=== PATIENT | male | born 1940 | race Hispanic/Latino ===

== ENCOUNTER 2018-03-06 12:24 | Day surgery (SDC) | payer MEDICARE, OTHER ==
[2018-02-16 13:31] VITALS: BMI 25.0
[2018-03-06 13:03] LABS: BASO # 0.02 K/mm3 (0.0-2.0); BASO % 0.3 % (0.0-3.0); EOS # 0.1 (0.0-0.7); GRAN # 5.74 (1.4-6.5); GRAN % 73.5 % (50.0-68.0); HEMOGLOBIN 15.7 g/dL (14.0-18.0); LYMPH # 1.2 (1.2-3.4); MEAN CORPUSCULAR HEMOGLOBIN 33.4 pg (25.0-35.0); MEAN CORPUSCULAR HGB CONC 35.9 g/dl (31.0-37.0); MEAN PLATELET VOLUME 9.7 fl (7.0-11.0); MONO # 0.8 (0.1-0.6); MONO % 10.2 % (1.0-6.0); RBC 4.7 10^6/uL (3.5-6.1); RED CELL DISTRIBUTION WIDTH 13.4 % (11.5-14.5); WHITE BLOOD COUNT 7.8 10^3/ul (4.5-11.0)
[2018-03-06 13:11] LABS: BLOOD UREA NITROGEN 19 mg/dL (7-21); CALCIUM 9.6 mg/dL (8.4-10.5); GFR NON-AFRICAN AMERICAN > 60
[2018-03-06 13:13] LABS: INR 1.07; PROTHROMBIN TIME 12.2 SECONDS (9.4-12.5)
[2018-03-06] MEDS ORDERED: Midazolam 2 MG/2 ML VIAL ONE (16:29)
[2018-03-06] MEDS ORDERED: Lidocaine 1% Inj (20ml) ONE (16:30)
[2018-03-06] MEDS ORDERED: Oxycodone/Acetaminophen 5/325 mg Tab PO PRN (17:09)
[2018-03-06] MEDS ORDERED: Sodium Chloride 0.45% 1,000 ML IV SCH (17:15)
[2018-03-06] MEDS ORDERED: Midazolam 2 MG/2 ML VIAL IVP ONE (17:32)
[2018-03-06 17:35] VITALS: RESP 12; TEMP 97.5
[2018-03-06 17:39] VITALS: O2SAT 95
[2018-03-06 17:52] VITALS: BP 127/71; PULSE 51
--- NOTE | 2018-03-06 18:30 | CT ---
PROCEDURE: CT guided left lower lobe lung biopsy. HISTORY: Previous smoker. 3.5 cm left lower lobe lung mass. Evaluate for malignancy. PHYSICIAN(S): Kaz Alcocer MD. TECHNIQUE: The relative risks and indications of the procedure were explained to the patient and consent obtained. The patient was placed prone on the CT scanner and preliminary images through the lower lungs obtained. Conscious sedation and monitoring were provided throughout the procedure by a nurse. There is a 3.5 cm noncalcified left lower lobe lung mass.. A left posterior oblique approach was selected and the area prepped and draped in the usual sterile fashion. 1% Xylocaine was used to anesthetize the skin and soft tissues. A 19 gauge guiding needle was advanced into the 3.5 cm left lower lobe lung mass. Its position was confirmed with CT. Using coaxial technique, multiple core biopsies were obtained. The postprocedure images show no evidence of large pneumothorax or significant hemorrhage.. IMPRESSION: 1. CT-guided left lower lobe lung biopsy as described above.
--- NOTE | 2018-03-07 10:49 | RAD ---
Date of service: 03/06/2018 HISTORY: lt lung bx COMPARISON: No prior. FINDINGS: LUNGS: Density at left lung base PLEURA: No significant pleural effusion identified, no pneumothorax apparent. CARDIOVASCULAR: Normal. OSSEOUS STRUCTURES: No significant abnormalities. VISUALIZED UPPER ABDOMEN: Normal. OTHER FINDINGS: None. IMPRESSION: No evidence of post biopsy pneumothorax
== END 2018-03-06 19:30 | disposition home or self-care (01) ==
LOC: SDS 12:24
PROVIDERS: ATTEND Radiology Vascular & Interventional Radiology
DX: C34.32 Malignant neoplasm of lower lobe, left bronchus or lung (principal); I25.10 Atherosclerotic heart disease of native coronary artery without angina pectoris; Z87.891 Personal history of nicotine dependence
CPT/HCPCS: 32405; 36415; 71045; 77012; 80048; 85025; 85610; 85730; 88305; J2250; J2405; J3010; J7030

== ENCOUNTER 2018-06-08 10:03 | Day surgery (SDC) | payer MEDICARE, OTHER ==
[2018-06-05 12:06] VITALS: BMI 25.8
[2018-06-08 10:41] LABS: BASO # 0.03 K/mm3 (0.0-2.0); BASO % 0.4 % (0.0-3.0); EOS # 0.6 (0.0-0.7); EOS % 6.5 % (1.5-5.0); GRAN # 5.94 (1.4-6.5); GRAN % 70.2 % (50.0-68.0); HEMOGLOBIN 13.8 g/dL (14.0-18.0); LYMPH # 1.2 (1.2-3.4); LYMPH % 14.1 % (22.0-35.0); MEAN CELL VOLUME 91.4 fl (80.0-105.0); MEAN CORPUSCULAR HEMOGLOBIN 31.1 pg (25.0-35.0); MEAN PLATELET VOLUME 9.2 fl (7.0-11.0); MONO # 0.7 (0.1-0.6); MONO % 8.8 % (1.0-6.0); RBC 4.44 10^6/uL (3.5-6.1); RED CELL DISTRIBUTION WIDTH 13.4 % (11.5-14.5); WHITE BLOOD COUNT 8.5 10^3/uL (4.5-11.0)
[2018-06-08 10:49] LABS: INR 1.2; PARTIAL THROMBOPLASTIN TIME 30.9 Seconds (25.1-36.5); PROTHROMBIN TIME 13.8 SECONDS (9.4-12.5)
[2018-06-08 10:51] LABS: BLOOD UREA NITROGEN 13 mg/dL (7-21); CALCIUM 9.2 mg/dL (8.4-10.5); GFR NON-AFRICAN AMERICAN > 60
[2018-06-08] MEDS ORDERED: Lidocaine 2% Inj (20ml) ONE (12:17)
[2018-06-08] MEDS ORDERED: Midazolam 2 MG/2 ML VIAL ONE ×2 (12:28→12:43)
[2018-06-08] MEDS ORDERED: Oxycodone/Acetaminophen 5/325 mg Tab PO PRN (13:34)
[2018-06-08] MEDS ORDERED: Sodium Chloride 0.45% 1,000 ML IV SCH (13:45)
[2018-06-08 14:43] VITALS: BP 147/73; PULSE 66; RESP 20; TEMP 97; O2SAT 97
--- NOTE | 2018-06-08 15:35 | VASCULAR ---
PROCEDURE: Ultrasound and fluoroscopic right internal jugular venous access port. CLINICAL HISTORY: Lung carcinoma.Venous port for chemotherapy. PHYSICIAN(S): Kaz Alcocer M.D. TECHNIQUE: The relative risks and indications of the procedure were explained to the patient and consent obtained. The patient was placed supine on the arteriogram table and the right neck and chest prepped and draped in the usual sterile fashion. Conscious sedation monitoring was provided throughout the procedure by a nurse. Antibiotics were given prior to the procedure. Under direct ultrasound guidance, the right internal jugular vein was punctured with a micro-puncture set. A 0.035 angled Glidewire was advanced into the IVC. A 4 cm incision was made below the right clavicle and the pocket blunted dissected. A 8 Chinese single-lumen catheter, 24 cm long, was advanced to the SVC/RA junction. The catheter was trimmed and attached to the port. The port aspirates and injects easily. The port was placed in the pocket and closed in 2 layers. The patient tolerated the procedure well. IMPRESSION: Ultrasound and fluoroscopically placed right internal jugular venous access port.
== END 2018-06-08 15:51 | disposition home or self-care (01) ==
LOC: SDS 10:03
PROVIDERS: ATTEND Radiology Vascular & Interventional Radiology
DX: C34.90 Malignant neoplasm of unspecified part of unspecified bronchus or lung (principal)
CPT/HCPCS: 36415; 36561; 76937; 77001; 80048; 85025; 85610; 85730; C1769; C1788; J0690; J1644; J2250; J2405; J3010; J7030

== ENCOUNTER 2018-07-03 12:25 | Outpatient (CLI) | payer MEDICARE, OTHER | END 2018-07-03 12:26 | disposition home or self-care (01) | LOC: OPLAB 12:25 ==

== ENCOUNTER 2018-07-04 11:49 | Outpatient (CLI) | payer MEDICARE, OTHER | END 2018-07-04 11:50 | disposition home or self-care (01) | LOC: OPLAB 11:49 | DX: D64.9 Anemia, unspecified (principal); E78.5 Hyperlipidemia, unspecified; E83.40 Disorders of magnesium metabolism, unspecified; M81.0 Age-related osteoporosis without current pathological fracture ==

== ENCOUNTER 2018-07-09 13:41 | Outpatient (CLI) | payer MEDICARE, OTHER | END 2018-07-09 13:42 | disposition home or self-care (01) | LOC: OPLAB 13:41 ==

== ENCOUNTER 2018-07-24 12:58 | Outpatient (CLI) | payer MEDICARE, OTHER | END 2018-07-24 12:59 | disposition home or self-care (01) | LOC: OPLAB 12:58 ==

== ENCOUNTER 2018-07-25 12:11 | Outpatient (CLI) | payer MEDICARE, OTHER | END 2018-07-25 12:12 | disposition home or self-care (01) | LOC: OPLAB 12:11 | DX: D64.9 Anemia, unspecified (principal); E78.5 Hyperlipidemia, unspecified; E83.40 Disorders of magnesium metabolism, unspecified; M81.0 Age-related osteoporosis without current pathological fracture ==

== ENCOUNTER 2018-07-26 10:59 | Inpatient (IN) | payer MEDICARE, OTHER ==
[2018-07-26 11:03] VITALS: BMI 23.7
[2018-07-26] MEDS ORDERED: Albuterol-Ipratrop 3 mg / 0.5 (3 ml) UD ONE ×2 (11:13→11:18)
--- NOTE | 2018-07-26 11:37 | ED PDOC ---
Arrival/HPI - General Time Seen by Provider: 07/26/18 11:04 Historian: Patient - History of Present Illness Narrative History of Present Illness (Text): 07/26/18 11:10 Patient is a 77 year old male with a past medical history of HLD and lung CA (last chemo and last iron transfusion 2 days ago), who presents to the Emergency department with complaints of worsening shortness of breath since 2 days. Reports shortness of breath worsened after iron transfusion yesterday. Patient informs visiting Dr. Palafox this morning where he was given solumedrol in the office and was referred to the Emergency department for worsening shortness breath. Patient denies any chest pain or fever. HPI and ROS limited secondary to respiratory distress. Oncologist: Dr. Palafox 07/26/18 13:51 Time/Duration: < week Symptom Onset: Gradual Symptom Course: Worsening Activities at Onset: Light Context: Other (Referred by Dr. Palafox ) Past Medical History - Provider Review Nursing Documentation Reviewed: Yes - Cardiac Hx Pacemaker: No - Neurological Hx Paralysis: No - Hematological/Oncological Hx Blood Transfusions: No - Musculoskeletal/Rheumatological Hx Musculoskeletal Disorders: Yes - Psychiatric Hx Emotional Abuse: No Hx Physical Abuse: No Hx Substance Use: No - Anesthesia Hx Anesthesia Reactions: No Hx Malignant Hyperthermia: No - Suicidal Assessment Feels Threatened In Home Enviroment: No Family/Social History - Physician Review Nursing Documentation Reviewed: Yes Family/Social History: No Known Family HX Hx Alcohol Use: Yes (OCCASIONAL BEER) Hx Substance Use: No Allergies/Home Meds Allergies/Adverse Reactions: Allergies No Known Allergies Allergy (Verified 07/26/18 12:11) Home Medications: Home Meds Medication Instructions Recorded Confirmed Aspirin [Ecotrin] 81 mg PO DAILY 11/13/17 07/26/18 Carvedilol [Coreg] 25 mg PO BID 11/13/17 07/26/18 Clopidogrel [Plavix] 75 mg PO DAILY 11/13/17 07/26/18 Multivitamin [Multivitamins] 1 cap PO DAILY 02/16/18 07/26/18 Telmisartan 80 mg PO QPM 02/16/18 07/26/18 Review of Systems - Review of Systems Systems not reviewed;Unavailable: Respiratory Distress Constitutional: absent: Fevers Respiratory: SOB Cardiovascular: absent: Chest Pain Physical Exam Vital Signs Reviewed: Yes Blood Pressure: Hypertensive Pulse: Regular Respiratory Rate: Normal Appearance: Positive for: Uncomfortable Pain Distress: None Mental Status: Positive for: Alert and Oriented X 3 - Systems Exam Head: Present: Atraumatic, Normocephalic Pupils: Present: PERRL Extroacular Muscles: Present: EOMI Conjunctiva: Present: Normal Mouth: Present: Moist Mucous Membranes Neck: Present: Normal Range of Motion Respiratory/Chest: Present: Rales, Retracting, Tachypneic, Other (Right Mediport right chest wall) Cardiovascular: Present: Murmurs, Irregular Rhythm, Tachycardic Abdomen: No: Tenderness, Distention, Peritoneal Signs Upper Extremity: Present: Normal Inspection. No: Cyanosis, Edema Lower Extremity: Present: Edema (pitting edema bilaterally) Neurological: Present: GCS=15, CN II-XII Intact, Speech Normal Skin: Present: Warm, Dry, Normal Color. No: Rashes Psychiatric: Present: Alert, Oriented x 3, Normal Insight, Normal Concentration Medical Decision Making ED Course and Treatment: 07/26/18 11:10 Impression: Patient is a 77 year old male who arrived at the Emergency department with complaints of worsening shortness of breath. Plan: -- ABG -- Labs -- EKG -- Chest X-Ray -- Furosemide -- BIPAP Procedure -- Reassess and disposition Prior Visits: Notes and results from previous visits were reviewed. Progress Notes: 07/26/18 11:47 Patient's lactate elevated to 3.7; however patient's SIRS criteria is only tachycardia. 07/26/18 12:47 Initial ekg at 11:28am appeared irregular. Repeat at 11:50 shows irregular rhythm at 94bpm with no clear p waves. ?afib 07/26/18 13:38 CT Chest reviewed by radiologist, shows: FINDINGS: PULMONARY ARTERIES: Unremarkable. No pulmonary embolism. AORTA: The ascending thoracic aorta is dilated to 4.3 cm once again assuming normal caliber 3.0 cm at the anterior arch. Reticular markings are diffusely increased throughout which may indicate CHF. The main pulmonary artery is dilated to 3.5 cm. Consider pulmonary artery hypertension. Calcific atherosclerotic changes are seen related to the thoracic aorta. LUNGS: Multiple scattered sub cm pulmonary nodules identified at the bilateral upper lobes predominantly but also affect the right middle lobe and right lower lobe suspicious for pulmonary metastases. The left lower lobe main bronchus appears attenuated likely partially resected with remaining airways clear. Reticular markings are diffusely increased throughout, but particularly at the inferior subsegments left upper lobe, which may indicate CHF. Pulmonary vascular congestion is questioned. Medial basilar left upper lobe atelectasis is appreciated with underlying nodule not excluded. PLEURAL SPACES: Interval moderate right pleural effusion present with a loculated [id number] left pleural effusion evident. Mild pericardial thickening or effusion identified. Pleural thickening is seen diffusely throughout the left lung with volume loss noted at the left lung as well status post prior left lower lobectomy. HEART: Cardiomegaly is reiterated with normal volume of the right lateral ventricle re lative to the left. Left atrium appears dilated and left lateral ventricle hypertrophied. LYMPH NODES: No lymphadenopathy. BONES, CHEST WALL: Sclerotic density under 1 cm size seen at the T9 vertebral body posteriorly, suspicious for metastasis though not definite. OTHER FINDINGS: Limited images through the upper abdomen reveals reflux sided contrast material not only into the inferior vena cava but also the hepatic veins diffusely in a pattern that may reflect right heart failure. IMPRESSION: Bilateral moderate pleural effusions are identified in the interval likely pulmonary vascular congestion and potential right heart failure as discussed above. Cardiomegaly. Trace pericardial effusion no definite pulmonary embolus identified. Status post left lower lobectomy with tiny scattered nodules diffusely noted suspicious for metastasis. Potential T9 vertebral body metastasis as well, though sclerotic. Limited atelectasis at the dependent portion of the inferior left lower lobe subsegments may harbor nodularity, further suspicious for metastasis. Thickening of the left-sided pleural may be a function post radiation change or possible inflammatory or infectious process. The latter is not favored. Other lesser findings as discussed above. 07/26/18 15:[address] Short. Normal WBC with 1% bands and afebrile. Considered infection but CT chest negative for infiltrate and blood cultures sent. Some improvement on bipap after lasix 80mg 07/26/18 17:13 - RAD Interpretation Radiology Orders: 07/26/18 11:11 CHEST PORTABLE [RAD] Stat - Medication Orders Current Medication Orders: Discontinued Medications Furosemide (Lasix) 80 mg IVP STAT STA Stop: 07/26/18 11:27 - Scribe Statement The provider has reviewed the documentation as recorded by the [employer] [employer] training with [employer]. All medical record entries made by the Scribe were at my direction and personally dictated by me. I have reviewed the chart and agree that the record accurately reflects my personal performance of the history, physical exam, m edical decision making, and the department course for this patient. I have also personally directed, reviewed, and agree with the discharge instructions and disposition. Disposition/Present on Arrival - Present on Arrival Any Indicators Present on Arrival: No - Disposition Have Diagnosis and Disposition been Completed?: Yes Diagnosis: CHF (congestive heart failure), Irregular cardiac rhythm, Shortness of breath, Metastatic primary lung cancer Disposition: HOSPITALIZED Disposition Time: 13:39 Patient Plan: Admission Patient Problems: Current Active Problems Problem Status Onset CHF (congestive heart failure) Acute Irregular cardiac rhythm Acute Shortness of breath Acute Metastatic primary lung cancer Acute Condition: GOOD
[2018-07-26 11:38] LABS: ARTERIAL BLOOD GAS HCO3 20.7 mmol/L (21-28); ARTERIAL BLOOD GAS O2 SAT 99.6 % (95-98); ARTERIAL BLOOD GAS PCO2 45 mm/Hg (35-45); ARTERIAL BLOOD GAS PH 7.27 (7.35-7.45); ARTERIAL BLOOD GAS TCO2 22.1 mmol.L (22-28)
[2018-07-26 11:44] LABS: HEMOGLOBIN 12.7 g/dL (14.0-18.0); LYMPH # 0.2 (1.2-3.4); LYMPH % 3.4 % (22.0-35.0); MEAN CELL VOLUME 95.4 fl (80.0-105.0); MEAN CORPUSCULAR HEMOGLOBIN 30.8 pg (25.0-35.0); MEAN CORPUSCULAR HGB CONC 32.2 g/dl (31.0-37.0); MEAN PLATELET VOLUME 8.6 fl (7.0-11.0); MONO # 1.1 (0.1-0.6); MONO % 16.6 % (1.0-6.0); PLATELET COUNT 495 10^3/uL (120.0-450.0); RBC 4.13 10^6/uL (3.5-6.1); RED CELL DISTRIBUTION WIDTH 18.3 % (11.5-14.5); WHITE BLOOD COUNT 6.8 10^3/uL (4.5-11.0)
[2018-07-26 11:54] LABS: INR 1.19; PARTIAL THROMBOPLASTIN TIME 31.6 Seconds (26.9-38.3); PROTHROMBIN TIME 13.4 SECONDS (9.4-12.5)
[2018-07-26 12:01] LABS: B-TYPE NATRIURETIC PEPTIDE 4660 pg/mL (0-450); TROPONIN I 0.03 ng/mL
[2018-07-26 12:11] LABS: ALB/GLOB RATIO 1.4 (1.1-1.8); ALT/SGPT 70 U/L (7-56); AST/SGOT 62 U/L (17-59); BLOOD UREA NITROGEN 31 mg/dL (7-21); CALCIUM 9.3 mg/dL (8.4-10.5); GFR NON-AFRICAN AMERICAN > 60
[2018-07-26 12:30] LABS: IRON 235 ug/dL (45-180)
[2018-07-26 12:31] LABS: ATYPICAL LYMPHOCYTE 4 % (0.0-0.0); BAND 1 % (0-2); LYMPHOCYTE 7 % (22.0-35.0); MONOCYTE 5 % (1.0-6.0); NEUTROPHIL 83 % (50.0-70.0)
[2018-07-26 12:32] LABS: URIC ACID 6.4 mg/dL (3.5-8.5)
[2018-07-26] MEDS ORDERED: Iohexol 350 MG/100 ML VIAL ONE (12:32)
[2018-07-26 12:39] LABS: % IRON SATURATION 103 % (20-55); TOTAL IRON BINDING CAPACITY 229 ug/dL (261-462)
--- NOTE | 2018-07-26 13:40 | CT ---
Date of service: 07/26/2018 PROCEDURE: CT Chest with contrast (Pulmonary Angiogram) HISTORY: lung cancer, shortness of breath, tachypnea COMPARISON: Non enhanced chest CT 02/05/2018. TECHNIQUE: Axial computed tomography images were obtained of the chest in the pulmonary arterial phase of enhancement. Coronal and sagittal reformatted images were created and reviewed. Intravenous contrast dose: Omnipaque 350, 96 cc Radiation dose: Total exam DLP = 556.67 mGy-cm. This CT exam was performed using one or more of the following dose reduction techniques: Automated exposure control, adjustment of the mA and/or kV according to patient size, and/or use of iterative reconstruction technique. FINDINGS: PULMONARY ARTERIES: Unremarkable. No pulmonary embolism. AORTA: The ascending thoracic aorta is dilated to 4.3 cm once again assuming normal caliber 3.0 cm at the anterior arch. Reticular markings are diffusely increased throughout which may indicate CHF. The main pulmonary artery is dilated to 3.5 cm. Consider pulmonary artery hypertension. Calcific atherosclerotic changes are seen related to the thoracic aorta. LUNGS: Multiple scattered sub cm pulmonary nodules identified at the bilateral upper lobes predominantly but also affect the right middle lobe and right lower lobe suspicious for pulmonary metastases. The left lower lobe main bronchus appears attenuated likely partially resected with remaining airways clear. Reticular markings are diffusely increased throughout, but particularly at the inferior subsegments left upper lobe, which may indicate CHF. Pulmonary vascular congestion is questioned. Medial basilar left upper lobe atelectasis is appreciated with underlying nodule not excluded. PLEURAL SPACES: Interval moderate right pleural effusion present with a loculated [id number] left pleural effusion evident. Mild pericardial thickening or effusion identified. Pleural thickening is seen diffusely throughout the left lung with volume loss noted at the left lung as well status post prior left lower lobectomy. HEART: Cardiomegaly is reiterated with normal volume of the right lateral ventricle relative to the left. Left atrium appears dilated and left lateral ventricle hypertrophied. LYMPH NODES: No lymphadenopathy. BONES, CHEST WALL: Sclerotic density under 1 cm size seen at the T9 vertebral body posteriorly, suspicious for metastasis though not definite. OTHER FINDINGS: Limited images through the upper abdomen reveals reflux sided contrast material not only into the inferior vena cava but also the hepatic veins diffusely in a pattern that may reflect right heart failure. IMPRESSION: Bilateral moderate pleural effusions are identified in the interval likely pulmonary vascular congestion and potential right heart failure as discussed above. Cardiomegaly. Trace pericardial effusion no definite pulmonary embolus identified. Status post left lower lobectomy with tiny scattered nodules diffusely noted suspicious for metastasis. Potential T9 vertebral body metastasis as well, though sclerotic. Limited atelectasis at the dependent portion of the inferior left lower lobe subsegments may harbor nodularity, further suspicious for metastasis. Thickening of the left-sided pleural may be a function post radiation change or possible inflammatory or infectious process. The latter is not favored. Other lesser findings as discussed above.
--- NOTE | 2018-07-26 14:52 | CP.PCM.CON ---
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 Patient was at Dr Dykes's office receiving iron infusion when he became extremely short of breath. He stated his shortness of breath began about 7 days ago and slowly worsened to the point he was becoming short of breath at rest. He denies fevers, chills, chest pain. He is status-post resection of his lung mass in 04/2018. He has received 3 cycles of chemotherapy with carboplatin which beg an after the resection. 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 PMD: Deja Oncologist: Jania [employer] Executive Producer: Alice ([facility]) Review of Systems - Review of Systems All systems: reviewed and no additional remarkable complaints except (as stated in HPI) Past Patient History - Past Social History Smoking Status: Former Smoker - CARDIAC Hx Pacemaker: No - PULMONARY Hx Respiratory Disorders: Yes Hx Lung Cancer: Yes - NEUROLOGICAL Hx Paralysis: No - HEMATOLOGICAL/ONCOLOGICAL Hx Blood Transfusions: No - MUSCULOSKELETAL/RHEUMATOLOGICAL Hx Musculoskeletal Disorders: Yes - PSYCHIATRIC Hx Emotional Abuse: No Hx Physical Abuse: No Hx Substance Use: No - SURGICAL HISTORY Hx Surgeries: Yes (CARD CATH) Hx Coronary Stent: Yes (x2) Other/Comment: lobectomy - ANESTHESIA Hx Anesthesia Reactions: No Hx Malignant Hyperthermia: No Meds Allergies/Adverse Reactions: Allergies Allergy/AdvReac Type Severity Reaction Status Date / Time No Known Allergies Allergy Verified 07/26/18 12:11 Physical Exam - Constitutional Appears: Well, Non-toxic, No Acute Distress - Head Exam Head Exam: ATRAUMATIC, NORMAL INSPECTION, NORMOCEPHALIC - Eye Exam Eye Exam: EOMI, Normal appearance, PERRL. absent: Scleral icterus - ENT Exam ENT Exam: Mucous Membranes Moist - Neck Exam Neck exam: Positive for: Full Rom - Respiratory Exam Respiratory Exam: Clear to Auscultation Bilateral, NORMAL BREATHING PATTERN. absent: Rales, Rhonchi, Wheezes Additional comments: seen on bipap fio2 30% - Cardiovascular Exam Cardiovascular Exam: Tachycardia, Irregular Rhythm, +S1, Systolic Murmur - GI/Abdominal Exam GI & Abdominal Exam: Normal Bowel Sounds, Soft. absent: Tenderness - Extremities Exam Extremities exam: Positive for: normal capillary refill, pedal edema, pedal pulses present Additional comments: 1+ pedal edema b/l - Neurological Exam Neurological exam: Alert, Oriented x3 - Psychiatric Exam Psychiatric exam: Normal Affect, Normal Mood - Skin Skin Exam: Dry, Intact, Normal Color, Warm Results - Vital Signs Recent Vital Signs: Last Vital Signs Temp 97.3 F L 07/26/18 12:13 Pulse 84 07/26/18 13:15 Resp 18 07/26/18 13:15 BP 133/97 H 07/26/18 13:15 Pulse Ox 98 07/26/18 13:15 - Labs Result Diagrams: 07/26/18 11:20 07/26/18 11:20 Labs: Laboratory Results - last 24 hr 07/26/18 07/26/18 07/26/18 10:30 10:30 11:20 WBC 6.8 RBC 4.13 Hgb 12.7 L Hct 39.4 L MCV 95.4 D MCH 30.8 MCHC 32.2 RDW 18.3 H Plt Count 495 H MPV 8.6 Neut % (Auto) 80.0 H Lymph % (Auto) 3.4 L [place] % (Auto) 16.6 H Eos % (Auto) 0.0 L Baso % (Auto) 0.0 Lymph # (Auto) 0.2 L [place] # (Auto) 1.1 H Eos # (Auto) 0.0 Baso # (Auto) 0.00 Absolute Neuts (auto) 5.44 Neutrophils % (Manual) 83 H Band Neutrophils % 1 Lymphocytes % (Manual) 7 L Atypical Lymphs % 4 H Monocytes % (Manual) 5 PT INR APTT D-Dimer, Quantitative pCO2 pO2 HCO3 ABG pH ABG Total CO2 ABG O2 Saturation ABG Base Excess ABG Potassium Glucose Lactate Mechanical Rate FiO2 Inspiratory BiPAP Crit Value Called To Crit Value Called By Blood Gas Notified Time Sodium Potassium Chloride Carbon Dioxide Anion Gap BUN Creatinine Est GFR ( Amer) Est GFR (Non-Af Amer) Random Glucose Uric Acid 6.4 Calcium Phosphorus Magnesium 2.0 Iron 235 H TIBC 229 L % Saturation 103 H Total Bilirubin AST ALT Alkaline Phosphatase Lactate Dehydrogenase 587 Total Creatine Kinase Troponin I NT-Pro-B Natriuret Pep Total Protein Albumin Globulin Albumin/Globulin Ratio Arterial Blood Potassium 07/26/18 07/26/18 07/26/18 11:20 11:20 11:25 WBC RBC Hgb Hct MCV MCH MCHC RDW Plt Count MPV Neut % (Auto) Lymph % (Auto) [place] % (Auto) Eos % (Auto) Baso % (Auto) Lymph # (Auto) [place] # (Auto) Eos # (Auto) Baso # (Auto) Absolute Neuts (auto) Neutrophils % (Manual) Band Neutrophils % Lymphocytes % (Manual) Atypical Lymphs % Monocytes % (Manual) PT 13.4 H INR 1.19 APTT 31.6 D-Dimer, Quantitative 638 H pCO2 45 pO2 160.0 H HCO3 20.7 L ABG pH 7.27 L ABG Total CO2 22.1 ABG O2 Saturation 99.6 H ABG Base Excess -6.2 L ABG Potassium 4.5 Glucose 188 H Lactate 3.9 H Mechanical Rate 16 FiO2 50.0 Inspiratory BiPAP 12 Crit Value Called To Md Crit Value Called By Rt Blood Gas Notified Time 1138 Sodium 143 140.0 Potassium 4.7 Chloride 110 H 111.0 H Carbon Dioxide 26 Anion Gap 12 BUN 31 H Creatinine 0.8 Est GFR ( Amer) > 60 Est GFR (Non-Af Amer) > 60 Random Glucose 136 H Uric Acid Calcium 9.3 Phosphorus 5.8 H Magnesium 2.1 Iron TIBC % Saturation Total Bilirubin 0.4 AST 62 H D ALT 70 H Alkaline Phosphatase 105 Lactate Dehydrogenase Total Creatine Kinase 28 L Troponin I 0.03 NT-Pro-B Natriuret Pep 4660 H Total Protein 6.8 Albumin 4.0 Globulin 2.8 Albumin/Globulin Ratio 1.4 Arterial Blood Potassium 4.5 Assessment & Plan - Assessment and Plan (Free Text) Plan: Mr Mejia is a 77 year old male with a PMHx of 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, CAD w/ 2 stents (placed over 10 years ago), left-heart valve pathology, HLD who presented to the ED for worsening shortness of breath: Stage IIB Adenocarcinoma Left Lung -LLL CT guided biopsy 03/06/18 showed adenocarcinoma with focal mucin production -PET scan performed on 03/28/2018 showed 4.7x5.1cm LLL pulm mass with intense FDG uptake consistent with malignant neoplasm; subcarinal adenopathy -measuring approx 2.2x3.4cm with increased FDG uptake; small non-specific sclerotic focus at T7 vertebral body of uncertain significance -patient underwent left lung mass resection in 04/2018 -began chemotherapy after lung mass resection - has completed 3 cycles of carboplatin - latest infusion 07/24/2018 -Chest CTA 07/26/2018: * Bilateral moderate pleural effusions are identified in the interval likely pulmonary vascular congestion and potential right heart failure as discussed above. Cardiomegaly. Trace pericardial effusion no definite pulmonary embolus identified. Status post left lower lobectomy with tiny scattered nodules diffusely noted suspicious for metastasis. Potential T9 vertebral body metastasis as well, though sclerotic. Limited atelectasis at the dependent portion of the inferior left lower lobe subsegments may harbor nodularity, further suspicious for metastasis. Thickening of the left-sided pleural may be a function post radiation change or possible inflammatory or infectious process. The latter is not favored. -currently with right-sided IJ venous access port -fur machine operator Dr Bush on board CHF Exacerbation -possibly 2/2 to left-heart valve pathology -patient stated he was told the valve (he is unsure which valve) will eventually need to be replaced -Chest CTA 07/26/2018: * Cardiomegaly is reiterated with normal volume of the right lateral ventricle relative to the left. Left atrium appears dilated and left lateral ventricle hypertrophied. -IV lexiscan nuclear stress test performed in 10/2017 was negative -probnp 4660 -received 80mg iv lasix in ED and patient urinated 2L with much improvement in sob -f/u echo -cleat layer Dr Dias on board Sclerotic T9 vertebral Body -Chest CTA 07/26/2018: * Sclerotic density under 1 cm size seen at the T9 vertebral body posteriorly, suspicious for metastasis though not definite. -PET scan performed on 03/28/2018 showed 4.7x5.1cm LLL pulm mass with intense FDG uptake consistent with malignant neoplasm; subcarinal adenopathy -measuring approx 2.2x3.4cm with increased FDG uptake; small non-specific sclerotic focus at T7 vertebral body of uncertain significance Seen and discussed with Dr Dykes <Jeb Dykes - Last Filed: 07/27/18 19:08> Meds - Medications Medications: Current Medications Arformoterol Tartrate (Brovana) 15 mcg IH [id number] [facility] Aspirin (Ecotrin) 81 mg PO DAILY [facility] Last Admin: 07/27/18 09:54 Dose: 81 mg Budesonide (Pulmicort Respules) 0.5 mg IH [id number] [facility] Carvedilol (Coreg) 25 mg PO BID [facility] Last Admin: 07/27/18 19:03 Dose: 25 mg Clopidogrel Bisulfate (Plavix) 75 mg PO DAILY [facility] Last Admin: 07/27/18 09:54 Dose: 75 mg Enoxaparin Sodium (Lovenox) 40 mg SC DAILY [facility]; Protocol Furosemide (Lasix) 40 mg IVP Q12 [facility] Last Admin: 07/27/18 09:53 Dose: 40 mg Losartan Potassium (Cozaar) 100 mg PO QPM [facility] Last Admin: 07/27/18 19:04 Dose: Not Given Multivitamins (Thera Tab) 1 tab PO DAILY [facility] Last Admin: 07/27/18 09:56 Dose: 1 tab Pantoprazole Sodium (Protonix Ec Tab) 40 mg PO 0600 [facility] Results - Vital Signs Recent Vital Signs: Last Vital Signs Temp 97.9 F 07/27/18 18:00 Pulse 99 H 07/27/18 19:03 Resp 18 07/27/18 18:00 BP 140/89 07/27/18 19:03 Pulse Ox 95 07/27/18 06:00 - Labs Result Diagrams: 07/27/18 06:00 07/27/18 06:00 Labs: Laboratory Results - last 24 hr 07/27/18 07/27/18 06:00 06:00 WBC 4.4 L D RBC 3.61 Hgb 10.9 L Hct 33.5 L MCV 92.8 MCH 30.2 MCHC 32.5 RDW 18.1 H Plt Count 387 MPV 8.6 Neut % (Auto) 84.8 H Lymph % (Auto) 9.5 L [place] % (Auto) 5.7 Eos % (Auto) 0.0 L Baso % (Auto) 0.0 Lymph # (Auto) 0.4 L [place] # (Auto) 0.3 Eos # (Auto) 0.0 Baso # (Auto) 0.00 Absolute Neuts (auto) 3.73 Sodium 142 Potassium 3.8 Chloride 107 Carbon Dioxide 30 Anion Gap 9 L BUN 33 H Creatinine 0.8 Est GFR ( Amer) > 60 Est GFR (Non-Af Amer) > 60 Random Glucose 108 Calcium 8.9 Total Bilirubin 0.5 AST 42 ALT 62 H Alkaline Phosphatase 75 Total Protein 5.9 Albumin 3.4 Globulin 2.5 Albumin/Globulin Ratio 1.4 Attending/Attestation - Attestation I have personally seen and examined this patient.: Yes I have fully participated in the care of the patient.: Yes I have reviewed all pertinent clinical information: Yes
[2018-07-26 15:05] LABS: VENOUS BLOOD GAS BASE EXCESS 2.5 mmol/L (0.0-2.0); VENOUS BLOOD GAS PO2 26 mm/Hg (30-55); VENOUS BLOOD PH 7.38 (7.32-7.43)
--- NOTE | 2018-07-26 15:21 | RAD ---
Date of service: 07/26/2018 HISTORY: shortness of breath COMPARISON: No prior. FINDINGS: LUNGS: Extensive opacity noted at right lung base. PLEURA: Small left pleural effusion. No evidence of right pleural effusion. No pneumothorax. CARDIOVASCULAR: There is atherosclerotic calcification of the aortic arch. Normal cardiac size. No congestive change. Right central venous infusion port. OSSEOUS STRUCTURES: No significant abnormalities. VISUALIZED UPPER ABDOMEN: Normal. OTHER FINDINGS: None. IMPRESSION: Right basilar infiltrate. Small left pleural effusion.
--- NOTE | 2018-07-26 16:25 | CARD ---
APPROVED REPORT Date of service: 07/26/2018 EKG Measurement Heart [id number] <Conclusion> Atrial fibrillation with premature ventricular or aberrantly conducted complexes Left axis deviation ST & T wave abnormality, consider lateral ischemia or digitalis effect Abnormal ECG
[2018-07-26] MEDS ORDERED: Influenza Vaccine 60 mcg/0.5 mL SYR (4YR UP) IM ONE (22:52)
[2018-07-27 06:49] LABS: HEMOGLOBIN 10.9 g/dL (14.0-18.0); LYMPH # 0.4 (1.2-3.4); LYMPH % 9.5 % (22.0-35.0); MEAN CELL VOLUME 92.8 fl (80.0-105.0); MEAN CORPUSCULAR HEMOGLOBIN 30.2 pg (25.0-35.0); MEAN CORPUSCULAR HGB CONC 32.5 g/dl (31.0-37.0); MEAN PLATELET VOLUME 8.6 fl (7.0-11.0); MONO # 0.3 (0.1-0.6); MONO % 5.7 % (1.0-6.0); RBC 3.61 10^6/uL (3.5-6.1); RED CELL DISTRIBUTION WIDTH 18.1 % (11.5-14.5); WHITE BLOOD COUNT 4.4 10^3/uL (4.5-11.0)
[2018-07-27 06:52] LABS: ALB/GLOB RATIO 1.4 (1.1-1.8); ALBUMIN 3.4 g/dL (3.0-4.8); ALT/SGPT 62 U/L (7-56); AST/SGOT 42 U/L (17-59); BLOOD UREA NITROGEN 33 mg/dL (7-21); CALCIUM 8.9 mg/dL (8.4-10.5); GFR NON-AFRICAN AMERICAN > 60
--- NOTE | 2018-07-27 08:11 | CARD ---
APPROVED REPORT Date of service: 07/26/2018 EKG Measurement Heart [id number] [id number] <Conclusion> Atrial Fibrillation. Left [place]. LVH. ST-T Changes.
[2018-07-27] MEDS: Multivitamin Therapeutic Tab PO SCH (09:56)
--- NOTE | 2018-07-27 10:05 | CP.PCM.APN ---
Subjective - Date & Time of Evaluation Date of Evaluation: 07/27/18 Time of Evaluation: 09:56 - Subjective Subjective: pt seen and examined at bedside, pt in NAD Review of Systems - Respiratory Respiratory: Dyspnea on Exertion Additional comments: sob Objective - Vital Signs/Intake and Output Vital Signs (last 24 hours): Temp Pulse Resp BP Pulse Ox 97.0 F L 89 19 129/96 H 95 07/27/18 06:00 07/27/18 06:00 07/27/18 06:00 07/27/18 06:00 07/27/18 06:00 Intake and Output: 07/27/18 07/27/18 06:59 18:59 Intake Total 240 0 Output Total 850 Balance -610 0 - Medications Medications: Current Medications Aspirin (Ecotrin) 81 mg PO DAILY [facility] Carvedilol (Coreg) 25 mg PO BID [facility] Last Admin: 07/26/18 18:10 Dose: 25 mg Clopidogrel Bisulfate (Plavix) 75 mg PO DAILY [facility] Furosemide (Lasix) 40 mg IVP Q12 [facility] Losartan Potassium (Cozaar) 100 mg PO QPM [facility] Last Admin: 07/26/18 22:55 Dose: Not Given Multivitamins (Thera Tab) 1 tab PO DAILY [facility] - Labs Labs: 07/27/18 06:00 07/27/18 06:00 PT 13.4 SECONDS (9.4-12.5) H 07/26/18 11:20 INR 1.19 07/26/18 11:20 APTT 31.6 Seconds (26.9-38.3) 07/26/18 11:20 - Constitutional Appears: No Acute Distress - Eye Exam Eye Exam: Normal appearance, PERRL - Respiratory Exam Respiratory Exam: Decreased Breath Sounds, NORMAL BREATHING PATTERN - Cardiovascular Exam Cardiovascular Exam: +S1, +S2 - GI/Abdominal Exam GI & Abdominal Exam: Soft, Normal Bowel Sounds - Neurological Exam Neurological Exam: Alert, Awake, Oriented x3 - Skin Skin Exam: Dry, Intact, Warm Assessment and Plan - Assessment and Plan (Free Text) Plan: ITS Impressions Chest X-Ray 07/26/18 11:11 IMPRESSION: Right basilar infiltrate. Small left pleural effusion. Chest CT 07/26/18 12:13 IMPRESSION: Bilateral moderate pleural effusions are identified in the interval likely pulmonary vascular congestion and potential right heart failure as discussed above. Cardiomegaly. Trace pericardial effusion no definite pulmonary embolus identified. Status post left lower lobectomy with tiny scattered nodules diffusely noted suspicious for metastasis. Potential T9 vertebral body metastasis as well, though sclerotic. Limited atelectasis at the dependent portion of the inferior left lower lobe subsegments may harbor nodularity, further suspicious for metastasis. Thickening of the left-sided pleural may be a function post radiation change or possible inflammatory or infectious process. The latter is not favored. Other lesser findings as discussed above. 77 yr old white male with pmh sig for lung ca stage 11B, Cad with stents, HLD, exsmoker who presented with for sob from Dr [place] office now admitted for futher mgmt of his acute symptoms SOB /CHF cxr showing right infiltrate chest ct - as shown with bilateral effusions elevated bnp on IV lasix BB, LINDA and ASA regimen Cardiology and pul consults pending cad with stents medical mgmt Lung CA Dr Patino consulted will continue to monitor clinical status BPCI/TIC - BPCIA/TIC Educated pt/family on BPCIA/CIR/Med to Bed Programs: Yes Flyers given, including CMS Beneficiary letter: Yes Pt/family verbalized understanding & agreed to program: Yes
--- NOTE | 2018-07-27 11:03 | CON ---
DATE: 07/27/2018 REQUESTING PHYSICIAN: Dr. Short. REASON FOR CONSULTATION: Congestive heart failure. HISTORY: This is a 77-year-old man with a history of coronary artery disease and valvular heart disease, followed by his primary paint maker, Dr. Jenkins at [facility], who was seen by Dr. Dykes, recently found to have worsening dyspnea. He was sent to the emergency room for admission. He states that his symptoms worsened after an iron transfusion yesterday. He denied any chest pain. He states he has been followed for valvular heart disease and states his valve has been becoming more calcified. It appears that he has a progressive aortic stenosis. He has stage III B lung cancer and is undergoing chemotherapy. He states he has one more cycle to complete. He denies any prior history of congestive heart failure. As mentioned, he has had no chest pain. PAST MEDICAL HISTORY: His past history is notable for the problems mentioned above, history of chronic atrial fibrillation. MEDICATIONS AT HOME: Include aspirin, carvedilol 25 mg b.i.d., Plavix, and telmisartan 80 mg daily. ALLERGIES: NONE. SOCIAL HISTORY: He is a former smoker. He drinks occasionally. FAMILY HISTORY: Both parents are from age-related illness. REVIEW OF SYSTEMS: Ten-point review of systems is otherwise unremarkable. PHYSICAL EXAMINATION: GENERAL: He is an elderly man, who appears mildly dyspneic at rest. VITAL SIGNS: Blood pressure is 136/90 with a pulse of 96 and irregularly irregular, respirations are 22. He is afebrile. HEENT: Normocephalic, atraumatic. NECK: No JVD. Carotid strokes are diminished and delayed. CHEST: Reveals coarse bilateral scattered rhonchi. HEART: PMI displaced laterally with a mid to late-peaking systolic murmur at the base radiating to the carotids. There is also a systolic murmur present at the lower left sternal border as well as at the apex. ABDOMEN: Soft and nontender with normoactive bowel sounds. EXTREMITIES: No clubbing, cyanosis or edema. SKIN: Warm and dry. PSYCHIATRIC: Normal mood and affect. NEUROLOGIC: Alert and oriented x3. No gross motor or sensory deficits noted. DIAGNOSTIC DATA: Potassium is 3.8. BUN and creatinine are 33 and 0.8. White count 4.4, hemoglobin and hematocrit are 10.9 and 33.5 with a platelet count of 387,000. Troponin is 0.03. CK is 28. BNP 4660. AST and ALT are elevated at 62 and 70. Chest x-ray reveals opacification of the right lung base with a small left pleural effusion. Electrocardiogram reveals atrial fibrillation with left axis deviation and nonspecific ST-T abnormalities. IMPRESSION: 1. Congestive heart failure, acute etiology to be determined, does have significant valvular heart disease, which may contribute to the above. 2. Known coronary artery disease, status post remote percutaneous coronary intervention, appears clinically stable. 3. Chronic atrial fibrillation, not currently on anticoagulant therapy, uncertain as to reason. 4. Advanced lung cancer, undergoing active chemotherapy. 5. Moderate to severe aortic stenosis on physical examination. 6. Mitral and tricuspid regurgitation appear significant. 7. Rest of problems as noted. RECOMMENDATIONS: 1. Carvedilol should continue. IV Lasix has been ordered. For now, aspirin and Plavix will be continued. It may be more appropriate than to continue on anticoagulant therapy given his atrial fibrillation. 2. Losartan has been added to his regimen. 3. An echocardiogram will be obtained and reviewed. Sodium restriction is advised. Intake and output will be monitored as well. Further recommendations will be based on his clinical course and review of the above findings. Thank you for this consultation. Miguel Mccullough MD
--- NOTE | 2018-07-27 12:21 | HP ---
DATE OF EXAM: 07/27/2018 CHIEF COMPLAINT AND HISTORY OF PRESENT ILLNESS: This is a 77-year-old male, who is coming into the hospital complaining of shortness of breath. The patient has a past medical history of lung cancer and he is getting chemotherapy with iron infusions by Dr. Dykes. The patient also has a history of dyslipidemia. He has a port in the right side of the chest. He reports that he started having worsening shortness of breath two days prior to coming in to the ER. He felt that he was getting this shortness of breath after he was placed on IV iron. The patient has been on Solu-Medrol. He says that he is feeling better this morning. He has no complains of any abdominal pain, no back pain, no dysuria or frequency, no nocturia, no weakness in the arms or the legs. Most of the shortness of breath occurs when he ambulates. ALLERGIES: NO KNOWN DRUG ALLERGIES. PAST MEDICAL HISTORY: 1. Coronary artery disease with stent. 2. Hypertension. 3. Lung CA. PAST SURGICAL HISTORY: Left lower lobectomy. FAMILY HISTORY: Noncontributory. SOCIAL HISTORY: He does drink occasionally. He was a smoker, but quit 40 years ago. He lives with his . 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 PHYSICAL EXAMINATION: VITAL SIGNS: Temperature is 97, pulse of 89, blood pressure 129/96, respirations 19, and O2 saturation 95%. Height is 5 feet 8 inches, weight is 156 pounds, BMI is 23.7. GENERAL: The patient is lying in bed, comfortable, and in no acute distress. HEENT: Atraumatic and normocephalic. Anicteric sclerae. Moist mucosa. [place] conjunctivae. No oral lesions. NECK: No JVD, anterior and posterior adenopathy, thyromegaly, or bruits. CARDIOVASCULAR: 3/6 systolic ejection murmur. LUNGS: Clear to auscultation bilaterally. No wheezes, rales, or rhonchi. ABDOMEN: Bowel sounds are positive. Soft, nontender and nondistended. No hepatosplenomegaly. No rebound and no guarding EXTREMITIES: Lower extremity, there is trace edema. NEUROLOGIC: No facial asymmetry. Tongue is midline. No uvula deviation. Power is 5/5 upper extremities and lower extremities. Sensation intact in upper extremities and lower extremities. PSYCHIATRIC: He is awake, alert and oriented x3. No anxiety or depression. He has normal affect. GENITOURINARY: No CVA tenderness. VASCULAR: 2+ pulses in the carotid pulses and pedal pulses. SKIN: No erythema or nodules SPINE: Shows normal curvature. LABORATORY DATA: He has a white count of 4.4, hemoglobin 10.9, platelet count is 387. INR is 1.1. Chemistry shows a sodium 142, potassium is 3.8, creatinine is 0.8, iron saturation is 103, and ferritin is 377. Chest x-ray shows right basilar infiltrate with a small left-sided pleural effusion. CT of the chest shows bilateral moderate pleural effusion, status post left lower lobectomy. The CT shows C9 vertebral body mets. EKG shows atrial fibrillation with a heart rate of 94. There is left axis deviation; QTC 487. ASSESSMENT: 1. Shortness of breath secondary to acute congestive heart failure, probable systolic dysfunction. 2. Adenocarcinoma of the lung, stage IIB. 3. Iron deficiency anemia. 4. Right chest port. 5. Coronary artery disease. 6. Probable aortic stenosis. PLAN: The patient is going to be admitted to the hospital because of acute congestive heart failure. The patient does have pulmonary edema. He is going to be seen by Cardiology and Pulmonary. The patient is on carvedilol. He is going to continue with losartan for his hypertension. He was doing Lasix, I will continue the patient's Lasix. I did speak to about the patient's plan of care, he agrees with diuretic therapy. The patient will also be seen by Dr. Dykes for followup. This is coverage for Dr. Short. Jairo Chen MD
--- NOTE | 2018-07-27 12:56 | CON ---
DATE: 07/27/2018 PULMONARY CONSULTATION NOTE REFERRING PHYSICIAN: Yair Short MD REASON FOR CONSULTATION: Lung cancer, pleural effusion, pulmonary congestion and shortness of breath. HISTORY OF PRESENT ILLNESS: This is a 77-year-old male with past medical history of stage IIB adenocarcinoma, left lung coronary artery disease with two stents left heart valve pathology, hyperlipidemia, had resection of lung mass in April 2018. The patient's last chemotherapy and last iron infusion was 2 days ago. The patient presented to emergency room complaining of worsening shortness of breath for the past 2 days. The patient reports that shortness of breath got too much worse after having last iron infusion. The patient went to Dr. Palafox's office where he got Solu-Medrol in the office and was referred to the emergency room. Today, the patient reports having shortness of breath. No coughing. No headache, rhinitis, chest pain, abdominal pain, nausea, vomiting, diarrhea, leg pain or leg swelling reported. PAST MEDICAL HISTORY: As per history of present illness. ALLERGIES: NO KNOWN DRUG ALLERGIES. FAMILY HISTORY: No cardiopulmonary disease reported. SOCIAL HISTORY: Former smoker, quit about 40 years ago, reports smoking less than one pack per day. No EtOH abuse. No illicit drug use. 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 REVIEW OF SYSTEMS: No headache, rhinitis, cough, chest pain, abdominal pain, nausea, vomiting, diarrhea, leg pain or leg swelling reported. The patient does report having shortness of breath at rest and with exertion. Denies any heart burn or nasal congestion. MEDICATION: Reviewed. Aspirin 81 mg daily, Coreg 25 mg twice a day, Plavix 75 mg daily, Lasix 40 mg every 12 hours, Cozaar 100 mg daily and multivitamin one tab daily. PHYSICAL EXAMINATION GENERAL: No acute distress. VITAL SIGNS: Blood pressure 129/96, pulse 89, temperature 97 and oxygen saturation 95% on BiPAP. HEENT: Moist mucous membranes. NECK: Supple. No JVD. RESPIRATORY: Decreased breath sounds bilaterally. CARDIOVASCULAR: Regular rhythm, systolic murmur. ABDOMEN: Soft and nontender. No distension. No organomegaly. Normal bowel sounds. EXTREMITIES: No bilateral lower extremity edema. NEUROLOGIC: Awake, alert and verbal. Follows commands. LABORATORY DATA: Reviewed. WBC 4.4, RBC 3.61, hemoglobin 10.9, hematocrit 33.5, and platelets 387. PT 30.4, INR 1.19, and APTT 31.6. D-dimer 638. ABG yesterday, PCO2 of 45, PO2 of 160, HCO3 of 20.7, AVGP is 1.27 that was on FIO2 50. Sodium 142, potassium 3.8, chloride 107, carbon dioxide 30, anion gap 9, BUN 33, creatinine 0.8, GFR greater than 60, random glucose 108, calcium 8.9, total bilirubin 0.5, AST 42, ALT 62, alkaline phosphatase 75, total protein 5.9, albumin 3.4, globulin 2.5 and albumin-globulin ratio 1.4. ProBNP 4660. Iron 235, TIBC 229, percent saturation 103 and ferritin 377. Electrocardiogram shows atrial fibrillation. Chest x-ray shows right basilar infiltrates and small left pleural effusion. Chest CT shows bilateral moderate pleural effusions, identify in the interval likely pulmonary vascular congestion and potential right heart failure, cardiomegaly, trace pericardial effusion, status post left lower lobectomy with highly scattered nodules, diffusely noted, suspicious for metastases, potential T9 vertebral body metastasis as well. Limited atelectasis at the dependent portion of the inferior left lower lobe, subsegmental nodularity for the suspicion for metastasis, thickening of left-sided pleural may be function post radiation change or possibly inflammatory infectious process. Echocardiogram report pending. IMPRESSION AND PLAN: Stage IIB adenocarcinoma left lung, was undergoing chemotherapy and iron transfusion, congestive heart failure exacerbation, sclerotic T9 vertebral body, coronary artery disease with two stents placed over 10 years ago, hyperlipidemia, left heart valve pathology, atrial fibrillation. We will order Lovenox for deep venous thrombosis prophylaxis, Protonix for gastric prophylaxis. We will place the patient on Brovana and Pulmicort nebulizer treatment. We will order procalcitonin, CBC, CMP for the morning. We will wait for report from echocardiogram for further treatment plan. Continue supplemental oxygen, head of elevated at 45 degrees and continue bilevel positive airway pressure use at bedtime and as needed. This patient was seen and examined with Dr. Bush. Discussed assessment and plan as described above. Thank you for this consult and we will follow with you. Tee Prudence, SEPARATOR OPERATOR [employer] Nadiya Bush MD [facility] # [id number] MTDMichelle
--- NOTE | 2018-07-27 17:16 | PN ---
DATE: 07/27/2018 This is [facility] visit on the telemetry floor. For Dr. Dykes. SUBJECTIVE: The patient is a 77-year-old male seen sitting up in bed, brought to emergency room yesterday after increasing shortness of breath with congestive heart failure diagnosed along with atrial fibrillation. He is known to suffer from stage III non-small cell CA of the lung, also history of coronary artery disease and heart valve pathology. At present, he is resting comfortably with shortness of breath improving after his diuresis yesterday and he is being monitored as per Dr. Mccullough, his painter chassis for further recommendations as indicated. The patient is status post left lower lobe resection and had chemotherapy with carboplatin Alimta 3 days prior. He also received IV iron, which accounts for his greater than normal percent saturation of iron. OBJECTIVE/PHYSICAL EXAMINATION VITAL SIGNS: Temperature 97, pulse 89, respirations 19, blood pressure 136/91, pulse oximetry 95% on BiPAP. HEENT: Unremarkable. NECK: Supple. HEART: 1/6 systolic ejection murmur irregularly irregular. LUNGS: Decreased breath sounds on the left, scattered rhonchi. ABDOMEN: Soft. EXTREMITIES: No edema. SKIN: Warm and dry. NEUROLOGIC: Awake and alert. LABORATORY DATA: The patient's labs were done. White blood cell count of 4.4, hemoglobin 10.9, hematocrit of 33.5 and platelet count of 387,000 with metabolic panel showing an ALT 62, BUN of 33, creatinine of 0.8 with normal potassium of 3.8. Percent saturation of iron was 103 after IV iron in the form of Venofer was recently given. His B-natriuretic peptide was 4660 yesterday. The patient did have a D-dimer done yesterday that has [address] angiogram done yesterday showing moderate bilateral pleural effusions with pulmonary vascular congestion, cardiomegaly with no definite pulmonary embolism identified, status post left lower lobectomy with scattered nodules suspicious for metastasis, potential T9 vertebral body metastasis as well, though sclerotic with thickening of the left-sided pleura, nonspecific. The patient did have an echocardiogram today but has not been read yet. His EKG yesterday showed atrial fibrillation. ASSESSMENT: The assessment for this patient is that of new onset atrial fibrillation with congestive heart failure; stage III adenocarcinoma of the lung, status post chemotherapy with carboplatin, Alimta; heart valvular disease. PLAN: Plan for this patient is to continue recommendations as per Cardiology and Pulmonology's recommendations. We will monitor clinically with labs with prognosis for this patient guarded. This is a complex patient with a comprehensive medically necessary and appropriate visit carried out in excess of 20 minutes with the patient's questions answered to his satisfaction. Wicho Palafox MD
[2018-07-27] MEDS: Budesonide 0.5 mg/2 ml Inhal Susp UD IH SCH (19:54)
[2018-07-27] MEDS: Arformoterol 15 mcg/2 ml Inh Sol IH SCH (19:54)
[2018-07-27] MEDS ORDERED: POLYETHYLENE GLYCOL 3350 17 GM/Dose PACKET PO ONE (22:33)
[2018-07-28] MEDS: Pantoprazole 40 mg EC Tab PO SCH (05:41)
--- NOTE | 2018-07-28 06:35 | CARD ---
APPROVED REPORT Date of service: 07/27/2018 EXAM: Two-dimensional and M-mode echocardiogram with Doppler and color Doppler. LEFT VENTRICLE The left ventricle is normal size. There is moderate concentric left ventricular hypertrophy. The left ventricular function is normal. The left ventricular ejection fraction is within the normal range. There is normal LV segmental wall motion. RIGHT VENTRICLE The right ventricle is normal size. The right ventricular systolic function is normal. ATRIA The left atrium is moderately dilated. The right atrium is moderately dilated. The interatrial septum is intact with no evidence for an atrial septal defect. AORTIC VALVE The aortic valve is severely calcified. There is moderate aortic regurgitation. There is severe valvular aortic stenosis. MITRAL VALVE Mitral annular calcification is mild. The mitral valve is moderately thickened. Mitral regurgitation is severe. TRICUSPID VALVE The tricuspid valve is normal in structure. There is moderate tricuspid regurgitation. PULMONIC VALVE The pulmonary valve is normal in structure. GREAT VESSELS The aortic root is normal in size. The IVC is normal in size and collapses >50% with inspiration. PERICARDIAL EFFUSION There is no pleural effusion. There is no pericardial effusion. <Conclusion> Biatrial enlargement. Moderate concentric LVH. Normal LV systolic function. Severe . Moderate AI. Moderate TR. Severe MR.
[2018-07-28 07:24] LABS: EOS % 0.5 % (1.5-5.0); HEMOGLOBIN 12.1 g/dL (14.0-18.0); LYMPH # 0.9 (1.2-3.4); LYMPH % 20.5 % (22.0-35.0); MEAN CELL VOLUME 91.5 fl (80.0-105.0); MEAN CORPUSCULAR HGB CONC 33.9 g/dl (31.0-37.0); MEAN PLATELET VOLUME 8.5 fl (7.0-11.0); MONO # 0.2 (0.1-0.6); MONO % 3.5 % (1.0-6.0); RBC 3.9 10^6/uL (3.5-6.1); RED CELL DISTRIBUTION WIDTH 17.3 % (11.5-14.5); WHITE BLOOD COUNT 4.3 10^3/uL (4.5-11.0)
[2018-07-28 07:31] LABS: ALB/GLOB RATIO 1.4 (1.1-1.8); ALBUMIN 3.7 g/dL (3.0-4.8); ALT/SGPT 61 U/L (7-56); AST/SGOT 43 U/L (17-59); BLOOD UREA NITROGEN 34 mg/dL (7-21); CALCIUM 9.1 mg/dL (8.4-10.5); GFR NON-AFRICAN AMERICAN > 60
--- NOTE | 2018-07-28 08:49 | PN ---
DATE: 07/28/2018 SUBJECTIVE: The patient is seen lying in bed on telemetry. He is feeling better. His dyspnea is improved. He feels he has become dehydrated. CURRENT MEDICATIONS: Include carvedilol 25 mg b.i.d., Cozaar 100 mg daily, Ecotrin once daily, Plavix 75 mg daily, Lasix 40 mg IV b.i.d., Lovenox, Protonix, and Pulmicort. OBJECTIVE: GENERAL: He is an elderly man, appears comfortable at rest, and his dyspnea appears improved. VITAL SIGNS: His blood pressure 122/86 with pulse of 90 in atrial fibrillation, respirations are 16. He is afebrile. HEENT: Diminished and delayed carotid upstroke. No JVD. CHEST: Bilateral scattered rhonchi. No rales heard. HEART: PMI displaced laterally with a late-peaking, systolic murmur at base; diastolic murmur in left sternal border; and a systolic murmur at the apex. ABDOMEN: Soft and nontender with bowel sounds. EXTREMITIES: No edema. DIAGNOSTIC DATA: Morning blood work is pending. Echocardiogram revealed moderate concentric LVH with normal LV size and systolic function, biatrial enlargement, severe aortic stenosis, moderate aortic insufficiency, severe mitral regurgitation, and moderate tricuspid regurgitation. IMPRESSION: 1. Recent decompensated congestive heart failure, diastolic, acute, clinically improved. 2. Known coronary artery disease, status post remote percutaneous coronary intervention, appears stable at present. 3. Chronic atrial fibrillation with controlled rate, only on aspirin and Plavix at the present time, unclear as to reason for withholding of anticoagulant therapy. 4. Advanced lung cancer, undergoing chemotherapy. 5. Severe aortic stenosis. 6. Severe mitral regurgitation. 7. Moderate tricuspid regurgitation and aortic insufficiency. RECOMMENDATIONS: Lasix will be reduced to once daily dosing. Morning labs will be reviewed. The rest of his medications will continue unchanged. It may be beneficial to curtail some of his volume infusion during chemotherapy given his multivalvular heart disease and diastolic dysfunction and diastolic heart failure. Decision regarding chronic anticoagulant therapy will be left to his primary barrel bung remover and dumper and Dr. Short. We will follow him as needed. Miguel Mccullough MD
[2018-07-28] MEDS: Arformoterol 15 mcg/2 ml Inh Sol IH SCH ×2 (09:08→20:06)
[2018-07-28] MEDS: Budesonide 0.5 mg/2 ml Inhal Susp UD IH SCH ×2 (09:08→20:06)
[2018-07-28] MEDS ORDERED: Potassium Chloride 20 mEq ER Tab PO ONE (09:43)
[2018-07-28] MEDS: Multivitamin Therapeutic Tab PO SCH (10:56)
[2018-07-28] MEDS: Enoxaparin 40 mg Syringe SC SCH (10:57)
--- NOTE | 2018-07-28 11:08 | PN ---
DATE: 07/28/2018 SUBJECTIVE: The patient has no complaints of any chest pain or shortness of breath. No headaches or dizziness. PHYSICAL EXAMINATION: VITAL SIGNS: Temperature is 97.7, pulse of 93, blood pressure is 136/93, respirations 20. GENERAL: The patient is lying in bed, flat, comfortable. HEENT: No oral lesion. Anicteric sclerae. Moist mucosa. NECK: No JVD, adenopathy, or thyromegaly. CARDIOVASCULAR: S1 and S2, regular. No murmurs, rubs, or gallops. LUNGS: Clear to auscultation bilaterally. No wheeze, rales, or rhonchi. ABDOMEN: Bowel sounds are positive, soft, nontender and nondistended. EXTREMITIES: no cyanosis, clubbing or edema. LABS: White count of 4.3, hemoglobin 12.1, creatinine 0.8, potassium 3.5. ASSESSMENT: 1. Acute congestive heart failure secondary to systolic dysfunction. 2. Adenocarcinoma of the lung, stage IIb. 3. Iron deficiency anemia. 4. Right-sided chest port. 5. Coronary artery disease. 6. Aortic stenosis. PLAN: The patient was seen by Pulmonary and Cardiology. I appreciate their input. I did speak to Dr. Mccullough regarding the case. The patient does have valvular heart disease and will follow up with his own wardrobe custodian. He currently is not on anticoagulation. The patient is undergoing chemotherapy. According to the patient's history, he also has mitral and tricuspid regurgitation. The patient does feel better. He is receiving Colace for constipation. He is on Coreg. He is going to be on aspirin daily. The patient is on Lovenox for DVT prophylaxis. He is on Lasix daily. He gets BiPAP in the evening. I will order blood work for tomorrow. This is coverage for Dr. Short. He will follow the patient tomorrow. The patient is also complaining of constipation. He says he has not moved his bowel in the last three days. I will give him a dose of lactulose. He says that he tried MiraLax but he has not moved his bowels. Jairo Chen MD
--- NOTE | 2018-07-28 19:06 | PN ---
DATE: 07/28/2018 This is [facility] visit on the telemetry floor. For Dr. Dykes. SUBJECTIVE: The patient is a 77-year-old male, seen sitting up in the chair, reporting that he cannot taste his food as his only complaint with his shortness of breath significantly improved now after diuresis. He continues to have irregular heartbeat with telemetry nurse reporting the patient had a run of V-tach while he was sleeping. This was reviewed with Dr. Mccullough with consideration for evaluation by equal opportunity officer and amiodarone drip as indicated. However, this has not recurred. The patient also reports he is followed by Dr. Jenkins, he is a facility service associate in [facility] in [place], phone number [phone], who approximately 10 years prior did a procedure as the patient had burst of rapid heartbeats he reports. This documentation would be sought as the patient is now anticoagulated with Lovenox in addition to his Plavix and aspirin from a long-term use of these particular medications with anticoagulation at that time with the suspicion at his atrial fibrillation is new onset at this time. Otherwise, the patient is resting comfortably. OBJECTIVE: VITAL SIGNS: Temperature 97.8, pulse 91, respirations 18, blood pressure 111/73 with the pulse ox of 97%. HEENT: Tongue is dry. NECK: Supple. HEART: 1/6 systolic ejection murmur. LUNGS: Occasional rhonchi. ABDOMEN: Soft and nontender. EXTREMITIES: No edema. SKIN: Warm and dry. NEUROLOGIC: Awake and alert. LABORATORY DATA: The patient's labs were done. White blood cell count of 4.3, hemoglobin of 12.1, hematocrit of 35.7, and platelet count of 321,000. Metabolic panel showing a potassium of 3.5, which will be corrected, BUN of 34, and creatinine of 0.8. ALT of 61, otherwise normal metabolic panel. The patient had an echocardiogram yesterday, it was read as biatrial enlargement, moderate concentric LVH, normal LV systolic function with severe , moderate AI, moderate TR, and severe MR. ASSESSMENT: Acute congestive heart failure, atrial fibrillation, atherosclerotic cardiovascular disease, severe aortic stenosis, severe mitral regurgitation, stage IIB/III adenocarcinoma of left lung, status post resection 04/2018, status post current treatment with chemotherapy carboplatin, Alimta, dysgeusia. PLAN: Continue present medical recommendations with Lovenox now added with the patient's primary Dr. Short to reach out to Dr. Jenkins regarding previous history versus with anticoagulation, now continue with Lovenox as indicated. The patient also had run of V-tach, which is being monitored by Dr. Mccullough, Cardiology with further recommendations as indicated. Chemotherapy at this time is on hold. We will monitor clinically and with labs. This is a complex patient with a comprehensive medically necessary and appropriate visit carried out in excess of 40 minutes with the patient's questions answered to his satisfaction. Wicho Palafox MD
[2018-07-28] MEDS ORDERED: Simethicone 80 mg Chewtab PO ONE (22:49)
--- NOTE | 2018-07-28 22:52 | PN ---
DATE: 07/28/2018 PULMONARY PROGRESS NOTE REFERRING PHYSICIAN: Yair Short MD SUBJECTIVE: The patient is lying in the bed at 45 degrees. Mild short of breath. No headache. No rhinitis. No nausea, vomiting, or diarrhea. No leg pain or leg swelling. OBJECTIVE: GENERAL: No acute distress. VITAL SIGNS: Temperature is 98, heart rate is 97, respiratory rate is 18, blood pressure 117/76, pulse ox 94% on nasal cannula. HEENT: Moist mucous membranes. Crowded airway. NECK: Supple. No JVD. LUNGS: Crackles at the bases with decreased breath sounds at bases. HEART: S1 and S2 with loud murmur. ABDOMEN: Soft, nontender. No organomegaly. EXTREMITIES: Does have edema. NEUROLOGIC: Awake, alert. Follows simple command. MEDICATIONS: Show Brovana inhaled twice a day, Coreg 25 mg twice a day, Cozaar 100 mg daily, Ecotrin 81 mg daily, Lasix 40 mg daily, Lovenox 40 mg daily, Plavix 75 mg daily, Protonix 40 mg daily, Pulmicort inhaled twice a day, multivitamins daily. LABORATORY DATA: Shows hemoglobin 12.1, hematocrit 35.7, WBC 4.3, platelet count is 321. INR 1.1. Sodium 139, potassium 3.5, chloride 99, bicarbonate is 34, BUN 34, creatinine 0.8, phosphorus 3.7, magnesium 2.1. AST 43, ALT 61, alk phos is 80, albumin is 3.7. Procalcitonin is 0.05. Microbiology: Blood culture has been negative. Echocardiogram showed severe mitral regurg, severe aortic stenosis, LVH. IMPRESSION AND PLAN: Stage IIIB adenocarcinoma of the left lung, was undergoing chemotherapy. Also has a severe lung disease with severe aortic stenosis and mitral regurgitation with heart failure, coronary artery disease, history of coronary artery stent, hyperlipidemia, atrial fibrillation. Has a pleural effusion. Pulmonary point of view, continue diuretics, afterload patient transport officer, bronchodilator, supplemental oxygen. Follow up labs in the morning. Thank you and we will follow with you. Nadiya Bush MD
[2018-07-29] MEDS: Pantoprazole 40 mg EC Tab PO SCH (05:38)
[2018-07-29 07:08] LABS: HEMOGLOBIN 12.5 g/dL (14.0-18.0); MEAN CELL VOLUME 90.8 fl (80.0-105.0); MEAN CORPUSCULAR HEMOGLOBIN 30.1 pg (25.0-35.0); MEAN CORPUSCULAR HGB CONC 33.2 g/dl (31.0-37.0); MEAN PLATELET VOLUME 8.9 fl (7.0-11.0); RBC 4.15 10^6/uL (3.5-6.1); RED CELL DISTRIBUTION WIDTH 16.8 % (11.5-14.5); WHITE BLOOD COUNT 4.8 10^3/uL (4.5-11.0)
[2018-07-29 07:46] LABS: ALB/GLOB RATIO 1.4 (1.1-1.8); ALT/SGPT 42 U/L (7-56); AST/SGOT 33 U/L (17-59); BLOOD UREA NITROGEN 31 mg/dL (7-21); CALCIUM 9.1 mg/dL (8.4-10.5); GFR NON-AFRICAN AMERICAN > 60
--- NOTE | 2018-07-29 08:57 | PN ---
DATE: 07/29/2018 SUBJECTIVE: The patient is seen lying in bed on telemetry. He is currently comfortable. He has had several episodes of sustained wide complex tachycardia, most likely due to ventricular tachycardia. He was hemodynamically stable and asymptomatic at that time. He states his dyspnea is improved. CURRENT MEDICATIONS: Include carvedilol 25 mg twice a day, Brovana, Cozaar 100 mg daily, Ecotrin, Lasix 40 mg IV daily, Lovenox, Plavix 75 mg daily, Protonix, Pulmicort. OBJECTIVE: GENERAL: He is an elderly man who appears comfortable at rest. VITAL SIGNS: Blood pressure 116/76 with pulse of 90 in atrial fibrillation, respirations are 60. He is afebrile. HEENT: No JVD. CHEST: Bilateral coarse rhonchi. HEART: PMI displaced laterally with systolic murmur at the base as well as lower left sternal border and apex. ABDOMEN: Soft and nontender with normoactive bowel sounds. EXTREMITIES: No edema. DIAGNOSTIC DATA: Morning blood work is pending. IMPRESSION: 1. Recent decompensated congestive heart failure, acute diastolic, appears clinically improved. 2. Known coronary artery disease status post remote percutaneous coronary intervention stable at present. 3. Chronic atrial fibrillation with controlled rate. 4. Wide complex tachycardia, likely due to ventricular tachycardia. Hemodynamically stable. 5. Advanced lung cancer, undergoing chemotherapy. RECOMMENDATIONS: 1. Severe aortic stenosis. 2. Severe mitral regurgitation. 3. Moderate tricuspid regurgitation, aortic insufficiency. RECOMMENDATIONS: At this time, continue conservative management appears most appropriate at this time. He will continue at this time around of chemotherapy. With respect to his multivalvular heart disease and diastolic heart failure. Conservative care appears most reasonable at this time. His ventricular tachycardia will be managed conservatively as well as given his age, general condition, and advanced lung cancer. Defibrillator implant does not appear appropriate. Conservative management of his severe multivalvular heart disease is recommended as well. We will continue to follow and make further recommendations as appropriate. Miguel Mccullough MD
[2018-07-29] MEDS: Budesonide 0.5 mg/2 ml Inhal Susp UD IH SCH ×2 (09:13→19:30)
[2018-07-29] MEDS: Arformoterol 15 mcg/2 ml Inh Sol IH SCH ×2 (09:13→19:30)
[2018-07-29] MEDS: Enoxaparin 40 mg Syringe SC SCH (11:15)
[2018-07-29] MEDS: Multivitamin Therapeutic Tab PO SCH (11:16)
[2018-07-29 12:33] LABS: INR 1.24
--- NOTE | 2018-07-29 14:55 | PN ---
DATE: 07/29/2018 This is [facility] visit on the telemetry floor. For Dr. Dykes. SUBJECTIVE: The patient is a 77-year-old male, seen sitting up in a chair now with improved breathing and his food tastes better with the patient now hospitalized for congestive heart failure with atrial fibrillation and also suffered from severe valvular disease including severe aortic stenosis, severe mitral regurgitation and stage IIB/III adenocarcinoma of the left lung for which he has chemotherapy 3 out of 4 treatments completed with the patient now, anticoagulated with Plavix, aspirin and Lovenox. His primary news content specialist is Dr. Jenkins at [facility] with the patient now being treated by Dr. Mccullough, Ecological Modeler for recent episodes of ventricular tachycardia with conservative recommendations continuing. He is otherwise in no acute distress this visit. PHYSICAL EXAMINATION: VITAL SIGNS: Temperature 97.8, pulse 94, respirations 18, blood pressure 111/67, with a pulse oximetry of 94%. HEENT: Unremarkable. Tongue is moist and midline. NECK: Supple. HEART: 1-2/6 systolic ejection murmur. Occasional ectopic beat. LUNGS: Rare rhonchi. ABDOMEN: Soft and nontender. EXTREMITIES: No edema. SKIN: Warm and dry. NEUROLOGIC: Awake and alert. LABORATORY DATA: The patient's labs were done, white blood cell count 4.8, hemoglobin 12.5, hematocrit 37.7 and platelet count 329,000. With a metabolic panel showing a BUN of 31, creatinine 0.7, otherwise normal metabolic panel. The patient did have a CA value done it was 6.3, along with the TSH 0.51 today. ASSESSMENT: For this patient, acute congestive heart failure, atrial fibrillation, severe valvular disease, including severe aortic stenosis, severe mitral regurgitation, stage IIIB/adenocarcinoma of the lung on the left, status post resection currently chemotherapy 3/4 treatments completed with carboplatin Alimta. Hypokalemia corrected. Runs ventricular tachycardia. PLAN: The plan for this patient after conversation with Dr. Dykes and Dr. Mccullough Cardiology. Needs to continue present medical regimen with conservative care with Lovenox to continue in addition to Plavix and aspirin. Along with monitoring of his electrolytes. his potassium 20 mEq p.o. daily. The patient continues on Lasix 40 mg a day. Labs being monitored and the patient will be monitored clinically. As per Dr. Mccullough's recommendations, we will continue beta-beatrice with the patient known to have potentially curable lung cancer which was reinforced after conservation with consultants. Eventually, the patient will followup with his primary news content specialist in [place] in [place], Dr. Jenkins for further recommendations as indicated. However conservative recommendations will be maintained as per Dr. Mccullough for now. With defibrillator implant not appropriate at this time as the patient's ejection fraction on his recent echocardiogram was within normal range. Echo done on 07/27/2018. This is a complex patient with a comprehensive medically necessary and appropriate visit carried out in excess of 45 minutes with the patient's questions answered to his satisfaction along with discussions held as above with consultants for their recommendations. Wicho Palafox MD
[2018-07-29] MEDS: Potassium Chloride 20 mEq ER Tab PO SCH (17:57)
--- NOTE | 2018-07-29 19:00 | PN ---
DATE: 07/29/2018 PULMONARY PROGRESS NOTE REFERRING PHYSICIAN: Yair Short MD SUBJECTIVE: He is lying in the bed at 45 degrees. Feels better, still gets short of breath with exertion. No nausea, no diarrhea, no leg swelling. Could not tolerate CPAP, feels too high pressure. OBJECTIVE: VITAL SIGNS: Temperature is 98, heart rate is 92, respiratory rate is 18, blood pressure 111/67, pulse ox 94% on nasal cannula. HEENT: Moist mucous membrane. Crowded. NECK: Supple. No JVD. LUNGS: Has a crackles at bases. Decreased breath sounds. HEART: S1 and S2 with murmur. ABDOMEN: Soft, nontender, no organomegaly. EXTREMITIES: There is not much edema today. NEUROLOGIC: Awake, alert, follows simple command. MEDICATIONS: He is on Brovana inhaled twice a day, Coreg 25 mg twice a day, Cozaar 100 mg daily Ecotrin 81 mg daily potassium 20 mEq daily, Lasix 40 mg daily, Lovenox 40 mg subcu daily, Plavix 75 mg daily, Protonix 40 mg daily, Pulmicort inhaled twice a day, multivitamins daily, Xanax 0.125 mg three times a day p.r.n. for anxiety. LABORATORY DATA: Shows hemoglobin 12.5, hematocrit 37.7, WBC 4.8, platelet count is 329. INR 1.24. Sodium 139, potassium 3.7, chloride 100, bicarbonate 31, BUN 31, creatinine 0.7, glucose 88, calcium is 9.1, magnesium 2.1, AST 33, ALT 42, alk phos is 84. Albumin is 4. Carcinoembryonic antigen is 6.3. TSH 0.5. One blood culture has been no growth. 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 Pulmonary point of view, doing okay. We will decrease continuous positive airway pressure. Continue diuretics, bronchodilators, supplemental oxygen, gastric and deep vein thrombosis prophylaxis, out of bed to chair, physical therapy. Thank you and we will follow with you. Nadiya Bush MD [facility] # [id number]
--- NOTE | 2018-07-29 23:16 | PN ---
DATE: 07/29/2018 A 77-year-old white male with a history of stage III lung CA, CHF, valvular heart disease. Admitted to hospital with severe shortness of breath, wheezing without chest pain. The patient had been getting chemotherapy with Dr. Dykes. Had recently got in an iron infusion. The patient became severely short of breath who was admitted to the hospital. The patient has had aortic stenosis and mitral regurgitation. The patient is in consultation with Dr. Mccullough. The patient is on IV antibiotics, bronchodilators, steroids, and afterload reduction. The patient did have an elevated BNP. The patient will continue on current therapy. He is less short of breath. He is less wheezing. He is feeling markedly improved. Plan will be to discuss possible valve replacement versus waiting until his chemotherapy is finished. Case will be discussed in the morning. Physical examination is unchanged. Chest is clear as the patient got some decreased breath sounds bilaterally. There is a systolic ejection murmur at the left sternal border. Extremities without cyanosis, clubbing or edema. Yair Short MD
[2018-07-30] MEDS: Pantoprazole 40 mg EC Tab PO SCH (05:58)
[2018-07-30 07:15] LABS: EOS % 0.5 % (1.5-5.0); HEMOGLOBIN 12.1 g/dL (14.0-18.0); LYMPH # 1.1 (1.2-3.4); LYMPH % 27.5 % (22.0-35.0); MEAN CELL VOLUME 89.9 fl (80.0-105.0); MEAN CORPUSCULAR HEMOGLOBIN 30.4 pg (25.0-35.0); MEAN CORPUSCULAR HGB CONC 33.8 g/dl (31.0-37.0); MEAN PLATELET VOLUME 8.8 fl (7.0-11.0); MONO # 0.2 (0.1-0.6); MONO % 3.9 % (1.0-6.0); RBC 3.98 10^6/uL (3.5-6.1); RED CELL DISTRIBUTION WIDTH 16.6 % (11.5-14.5); WHITE BLOOD COUNT 3.9 10^3/uL (4.5-11.0)
[2018-07-30] MEDS: Arformoterol 15 mcg/2 ml Inh Sol IH SCH ×2 (07:17→20:16)
[2018-07-30] MEDS: Budesonide 0.5 mg/2 ml Inhal Susp UD IH SCH ×2 (07:18→20:16)
[2018-07-30 07:41] LABS: ALB/GLOB RATIO 1.4 (1.1-1.8); ALBUMIN 3.6 g/dL (3.0-4.8); ALT/SGPT 29 U/L (7-56); AST/SGOT 36 U/L (17-59); BLOOD UREA NITROGEN 27 mg/dL (7-21); CALCIUM 8.9 mg/dL (8.4-10.5); GFR NON-AFRICAN AMERICAN > 60
--- NOTE | 2018-07-30 08:00 | CP.PCM.PN ---
Subjective - Date & Time of Evaluation Date of Evaluation: 07/30/18 Time of Evaluation: 07:56 - Subjective Subjective: PGY-2 heme/onc progress note for Dr Dykes No acute events noted overnight. Patient stated cpap machine "too rough". Complains of cough and some dry blood on tissue (very minimal due to dry air) on tissue after blowing nose. Sob today after climbing a flight of stairs - no sob on ambulation, no cp on ambulation. Beats of vtach acknowledged and d/w neckties painter Dr Barker. Objective - Vital Signs/Intake and Output Vital Signs (last 24 hours): Temp Pulse Resp BP Pulse Ox 98.1 F 90 18 101/64 95 07/30/18 06:00 07/30/18 06:00 07/30/18 06:00 07/30/18 06:00 07/30/18 00:01 Intake and Output: 07/30/18 07/30/18 06:59 18:59 Intake Total 1260 Balance 1260 - Medications Medications: Current Medications Alprazolam (Xanax) 0.125 mg PO TID PRN; Protocol PRN Reason: Anxiety Stop: 08/05/18 14:01 Last Admin: 07/29/18 23:33 Dose: 0.125 mg Arformoterol Tartrate (Brovana) 15 mcg IH [id number] [facility] Last Admin: 07/30/18 07:17 Dose: 15 mcg Aspirin (Ecotrin) 81 mg PO DAILY [facility] Last Admin: 07/29/18 11:16 Dose: 81 mg Budesonide (Pulmicort Respules) 0.5 mg IH [id number] [facility] Last Admin: 07/30/18 07:18 Dose: 0.5 mg Carvedilol (Coreg) 25 mg PO BID [facility] Last Admin: 07/29/18 17:57 Dose: 25 mg Clopidogrel Bisulfate (Plavix) 75 mg PO DAILY [facility] Last Admin: 07/29/18 11:16 Dose: 75 mg Enoxaparin Sodium (Lovenox) 40 mg SC DAILY [facility]; Protocol Last Admin: 07/29/18 11:15 Dose: 40 mg Furosemide (Lasix) 40 mg IVP DAILY [facility] Last Admin: 07/29/18 11:16 Dose: 40 mg Losartan Potassium (Cozaar) 100 mg PO QPM [facility] Last Admin: 07/29/18 17:57 Dose: 100 mg Multivitamins (Thera Tab) 1 tab PO DAILY [facility] Last Admin: 07/29/18 11:16 Dose: 1 tab Pantoprazole Sodium (Protonix Ec Tab) 40 mg PO 0600 [facility] Last Admin: 07/30/18 05:58 Dose: 40 mg Potassium Chloride (K-Dur 20 Meq Er Tab) 20 meq PO DAILY [facility] Last Admin: 07/29/18 17:57 Dose: 20 meq - Labs Labs: 07/30/18 06:25 07/30/18 06:25 PT 14.0 SECONDS (9.4-12.5) H 07/29/18 12:10 INR 1.24 07/29/18 12:10 APTT 31.6 Seconds (26.9-38.3) 07/26/18 11:20 - Additional Findings Additional findings: - Constitutional Appears: Well, Non-toxic, No Acute Distress - Head Exam Head Exam: ATRAUMATIC, NORMAL INSPECTION, NORMOCEPHALIC - Eye Exam Eye Exam: EOMI, Normal appearance, PERRL. absent: Scleral icterus - ENT Exam ENT Exam: Mucous Membranes Moist - Neck Exam Neck exam: Positive for: Full Rom - Respiratory Exam Respiratory Exam: Clear to Auscultation Bilateral, NORMAL BREATHING PATTERN. absent: Rales, Rhonchi, Wheezes Additional comments: seen on bipap fio2 30% - Cardiovascular Exam Cardiovascular Exam: Tachycardia, Irregular Rhythm, +S1, Systolic Murmur - GI/Abdominal Exam GI & Abdominal Exam: Normal Bowel Sounds, Soft. 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, CAD w/ 2 stents (placed over 10 years ago), left-heart valve pathology, HLD who presented to the ED for worsening shortness of breath: Stage IIB Adenocarcinoma Left Lung -LLL CT guided biopsy 03/06/18 showed adenocarcinoma with focal mucin production -PET scan performed on 03/28/2018 showed 4.7x5.1cm LLL pulm mass with intense FDG uptake consistent with malignant neoplasm; subcarinal adenopathy -measuring approx 2.2x3.4cm with increased FDG uptake; small non-specific sclerotic focus at T7 vertebral body of uncertain significance -patient underwent left lung mass resection in 04/2018 -began chemotherapy after lung mass resection - has completed 3 cycles of carboplatin - latest infusion 07/24/2018 -Chest CTA 07/26/2018: * Bilateral moderate pleural effusions are identified in the interval likely pulmonary vascular congestion and potential right heart failure as discussed above. Cardiomegaly. Trace pericardial effusion no definite pulmonary embolus identified. Status post left lower lobectomy with tiny scattered nodules diffusely noted suspicious for metastasis. Potential T9 vertebral body metastasis as well, though sclerotic. Limited atelectasis at the dependent portion of the inferior left lower lobe subsegments may harbor nodularity, further suspicious for metastasis. Thickening of the left-sided pleural may be a function post radiation change or possible inflammatory or infectious process. The latter is not favored. -currently with right-sided IJ venous access port -integrated pest management technician Dr Bush on board CHF Exacerbation -likely 2/2 to left-heart valve pathology -patient stated he was told the valve (he is unsure which valve) will eventually need to be replaced -Chest CTA 07/26/2018: * Cardiomegaly is reiterated with normal volume of the right lateral ventricle relative to the left. Left atrium appears dilated and left lateral ventricle hypertrophied. -IV lexiscan nuclear stress test performed in 10/2017 was negative -probnp 4660 -received 80mg iv lasix in ED and patient urinated 2L with much improvement in sob -on lasix 40mg ivp qd, coreg 25mg po bid, plavix 75mg po qd, aspirin 81mg po qd, losartan 100mg po qpm -echo 07/28/18 * biatrial enlargement, moderate concentric LVH, normal LV systolic function, severe , moderate AI, moderate TR, severe MR -neckties painter Dr Dias on board Sclerotic T9 vertebral Body -Chest CTA 07/26/2018: * Sclerotic density under 1 cm size seen at the T9 vertebral body posteriorly, suspicious for metastasis though not definite. -PET scan performed on 03/28/2018 showed 4.7x5.1cm LLL pulm mass with intense FDG uptake consistent with malignant neoplasm; subcarinal adenopathy -measuring approx 2.2x3.4cm with increased FDG uptake; small non-specific sclerotic focus at T7 vertebral body of uncertain significance Seen and discussed with Dr Dykes
[2018-07-30] MEDS: Multivitamin Therapeutic Tab PO SCH (09:56)
[2018-07-30] MEDS: Enoxaparin 40 mg Syringe SC SCH (09:57)
[2018-07-30] MEDS: Potassium Chloride 20 mEq ER Tab PO SCH (09:57)
--- NOTE | 2018-07-30 11:05 | RAD ---
Date of service: 07/30/2018 HISTORY: f/u CHF COMPARISON: 07/26/2018 TECHNIQUE: Chest PA and lateral FINDINGS: LUNGS: Minimal bibasilar infiltrates. Improved from prior exam PLEURA: Small pleural effusions CARDIOVASCULAR: Aortic calcification Normal cardiac size. No pulmonary vascular congestion. OSSEOUS STRUCTURES: No significant abnormalities. VISUALIZED UPPER ABDOMEN: Normal. OTHER FINDINGS: None. IMPRESSION: Minimal bibasilar infiltrates and small effusions showing improvement
[2018-07-30] MEDS ORDERED: Promethazine/Cod 6.25mg-10mg/5ml Syr UD PO PRN (12:11)
--- NOTE | 2018-07-30 12:15 | PN ---
DATE: 07/30/2018 SUBJECTIVE: The patient is seen lying in bed on telemetry. His dyspnea is improved. He has had no further ventricular tachycardia noted overnight. His current medications include Brovana, carvedilol 25 mg b.i.d., Cozaar 100 mg daily Ecotrin once daily, Lasix 40 mg IV daily, potassium 20 mEq daily, Lovenox, Plavix 75 mg daily, Protonix, Pulmicort and Xanax. OBJECTIVE: GENERAL: He is an elderly man who appears comfortable at rest. VITAL SIGNS: Blood pressure is 100/64, pulse of 19 atrial fibrillation and respirations 60. He is afebrile. HEENT: No JVD. CHEST: Few scattered rhonchi noted. HEART: PMI displaced laterally with a late-peaking systolic murmur at the base as well as systolic murmur at the lower left sternal border and apex. ABDOMEN: soft, nontender with normoactive bowel sounds. EXTREMITIES: No edema. DIAGNOSTIC DATA: Potassium 4.0, BUN and creatinine 27 and 0.7. White count 3.9, hemoglobin and hematocrit 12.1 and 35.8 with platelet count 237,000. IMPRESSION: 1. Recent decompensated congestive heart failure, acute diastolic, clinically improved. 2. Known coronary disease status post prior remote percutaneous coronary intervention, appears stable. 3. Chronic atrial fibrillation with controlled rate. 4. Recent nonsustained ventricular tachycardia with no recurrence. 5. Stage III lung cancer, scheduled for one final round of chemotherapy. 6. Severe aortic stenosis. 7. Severe mitral regurgitation. 8. Moderate tricuspid and aortic insufficiency. RECOMMENDATIONS: His current medications will continue for now. Followup chest x-ray will be planned. Continue conservative management. His cardiac condition appears appropriate and eventual outpatient followup with his primary proced tech at [facility] Will be advised for further management of his valvular heart disease and nonsustained ventricular tachycardia. Continue beta-beatrice therapy is advisable given the recent ventricular tachycardia. His angiotensin receptor beatrice will be held if his blood pressure is below 100. Beta-beatrice therapy should continue uninterrupted. If his chest x-ray shows improvement, switch him to oral diuretic would be reasonable. We will continue to follow and make further recommendations as appropriate. Miguel Mccullough MD [facility] # [id number] [place]
--- NOTE | 2018-07-30 13:26 | PN ---
DATE: 07/30/2018 SUBJECTIVE: This is a 77-year-old white male with history of lung CA, stage III, admitted to the hospital with exacerbation of COPD, possible pneumonia, valvular heart disease. Today, the patient had a restful night. Blood pressure is 101/64, temperature is 98.1. BUN and creatinine are stable. Potassium 4, hemoglobin is 4.1, and white count is 3.9. The patient's chest shows some rhonchi in both bases, but no wheezing. The patient is tolerating his diet well. He is starting to ambulate. The patient will be finishing the course of antibiotics and bronchodilators and steroids. Case was discussed with Dr. Dykes and Cardiology because of valvular heart disease. Yair Short MD
--- NOTE | 2018-07-30 15:03 | PN ---
DATE: 07/30/2018 PULMONARY PROGRESS NOTE REFERRING PHYSICIAN: Rodrigo Short MD SUBJECTIVE: The patient is sitting in armed chair in room, no acute distress. No overnight events reported. The patient reports feeling better, still gets short of breath with exertion. Has occasional dry cough. No headache, rhinitis, chest pain, abdominal pain, nausea, vomiting, diarrhea, leg pain or leg swelling reported. The patient did not use CPAP machine last night. PHYSICAL EXAMINATION: GENERAL: No acute distress. VITAL SIGNS: Blood pressure 104/67, pulse 89, temperature 98.1. Oxygen saturation 95% on nasal cannula. HEENT: Moist mucous membranes. Crowded airways. NECK: Supple. No JVD. LUNGS: Decreased breath sounds. Few crackles at the bases. CARDIOVASCULAR: S1 and S2 with murmur. ABDOMEN: Soft, nontender. No distention. No organomegaly. EXTREMITIES: No bilateral lower extremity edema. NEUROLOGICAL: Awake, alert and verbal. Follows commands. MEDICATIONS: Reviewed. Xanax 0.125 mg three times a day p.r.n., Brovana 15 mcg inhalation every 12 hours, aspirin 81 mg daily, Pulmicort 0.5 mg inhalation every 12 hours, Coreg 25 mg twice a day, Plavix 75 mg daily, Lovenox 40 mg subcu daily, Lasix 40 mg IV push daily, Cozaar 100 mg in the evening, multivitamin one tablet daily, Protonix 40 mg daily, potassium chloride 20 mEq daily, Phenergan-Codeine 5 mL every 6 hours p.r.n., [place] nasal spray daily p.r.n. LABORATORY DATA: Reviewed. WBC 3.9, RBC 3.98, hemoglobin 12.1, hematocrit 35.8, and platelets 237. Sodium 139, potassium 4, chloride 102, carbon dioxide 30, anion gap 10, BUN 27, creatinine 0.7, GFR greater than 60. Random glucose is 95, calcium 8.9, total bilirubin 0.8. AST 36, ALT 29, alkaline phosphatase 84, total protein 6.3, albumin 3.6, globulin 2.7, and albumin-globulin ratio 1.4. Blood cultures preliminary no growth after four days. Chest x-ray shows minimal bibasilar infiltrates and small effusions showing improvement. 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 Pulmonary point of view, continue to encourage continuous positive airway pressure use at bedtime, sleep apnea precaution, head of bed elevated 45 degrees. Continue bronchodilators, diuretics, supplemental oxygen, gastric prophylaxis, deep venous thrombosis prophylaxis, out of bed to chair, physical therapy. This patient was seen and examined with Dr. Bush. Discussed assessment and plan as described above. The patient was seen and examined with Tee Esparza, nurse practitioner, seen and examined as described above. Thank you for this consult. We will follow with you. Tee Esparza APN Nadiya Bush MD
[2018-07-30] MEDS ORDERED: Simethicone 80 mg Chewtab PO ONE (18:17)
[2018-07-31 00:55] VITALS: RESP 18
[2018-07-31] MEDS: Pantoprazole 40 mg EC Tab PO SCH (05:19)
[2018-07-31 06:30] VITALS: TEMP 98.3; O2SAT 99
[2018-07-31] MEDS: Budesonide 0.5 mg/2 ml Inhal Susp UD IH SCH (08:25)
[2018-07-31] MEDS: Arformoterol 15 mcg/2 ml Inh Sol IH SCH (08:25)
[2018-07-31] MEDS: Multivitamin Therapeutic Tab PO SCH (09:17)
[2018-07-31] MEDS: Enoxaparin 40 mg Syringe SC SCH (09:17)
[2018-07-31] MEDS: Potassium Chloride 20 mEq ER Tab PO SCH (09:17)
[2018-07-31 09:20] VITALS: BP 113/71; PULSE 86
--- NOTE | 2018-07-31 11:57 | PN ---
DATE: 07/31/2018 PULMONARY PROGRESS NOTE REFERRING PHYSICIAN: Rodrigo Short MD SUBJECTIVE: The patient is sitting in armchair in room. No acute distress. No overnight events reported, wore CPAP machine last night. Reports feeling better today, still has shortness of breath with exertion, but reports that is doing much better. No headache, rhinitis, cough, chest pain, abdominal pain, nausea, vomiting, diarrhea, leg pain or leg swelling reported. OBJECTIVE: GENERAL: No acute distress. VITAL SIGNS: Blood pressure 113/71, pulse 86, temperature 98.3, oxygen saturation 99% on nasal cannula. HEENT: Moist mucous membranes. Crowded airway. NECK: Supple. No JVD. LUNGS: Decreased breath sounds bilaterally. CARDIOVASCULAR: S1, S2, murmur. ABDOMEN: Soft and nontender. No distention. No organomegaly. EXTREMITIES: No bilateral lower extremity edema. NEUROLOGICAL: Awake, alert, and verbal. Follows commands. MEDICATIONS: Reviewed. Xanax 0.125 mg 3 times a day p.r.n., Brovana 15 mcg every 12 hours, aspirin 81 mg daily, Pulmicort 0.5 mg inhalation every 12 hours, Coreg 25 mg twice a day, Plavix 75 mg daily, Lovenox 40 mg daily, Lasix 40 mg daiily, Cozaar 100 mg daily, multivitamin one tablet daily, Protonix 40 mg daily, potassium chloride 20 mEq daily, Phenergan-Codeine 5 mL every 6 hours p.r.n., [place] nasal spray daily p.r.n. LABORATORY DATA: Reviewed. No new labs since yesterday. 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 Pulmonary point of view. Continue bronchodilators, diuretics, supplemental oxygen, gastric prophylaxis, deep venous thrombosis prophylaxis. The patient possible be discharged home today. The patient will need full pulmonary function test as outpatient. We will need sleep study as outpatient to rule out sleep apnea causes of severe cardiomyopathy and valvular heart disease. This patient was seen and examined with Dr. Bush. Discussed assessment and plan as described above. This patient was seen and examined with Tee Esparza, nurse practitioner. Described assessment and plan as described above. Thank you for this consult. We will follow with you. Tee Esparza APN Nadiya Bush MD
--- NOTE | 2018-07-31 14:06 | CP.PCM.PN ---
Subjective - Date & Time of Evaluation Date of Evaluation: 07/31/18 Time of Evaluation: 14:04 - Subjective Subjective: PGY-2 heme/onc progress note for Dr Dykes No acute events noted overnight. Patient resting comfortably in chair. Denied sob, cp. Stated he worked with PT yesterday which went well except he became sob climbing stairs however that has been ongoing for many months. Objective - Vital Signs/Intake and Output Vital Signs (last 24 hours): Temp Pulse Resp BP Pulse Ox 98.3 F 86 18 113/71 99 07/31/18 06:00 07/31/18 09:17 07/31/18 06:00 07/31/18 09:17 07/31/18 06:00 Intake and Output: 07/31/18 07/31/18 06:59 18:59 Intake Total 360 Balance 360 - Labs Labs: 07/30/18 06:25 07/30/18 06:25 PT 14.0 SECONDS (9.4-12.5) H 07/29/18 12:10 INR 1.24 07/29/18 12:10 APTT 31.6 Seconds (26.9-38.3) 07/26/18 11:20 - Additional Findings Additional findings: - Constitutional Appears: Well, Non-toxic, No Acute Distress - Head Exam Head Exam: ATRAUMATIC, NORMAL INSPECTION, NORMOCEPHALIC - Eye Exam Eye Exam: EOMI, Normal appearance, PERRL. absent: Scleral icterus - ENT Exam ENT Exam: Mucous Membranes Moist - Neck Exam Neck exam: Positive for: Full Rom - Respiratory Exam Respiratory Exam: Clear to Auscultation Bilateral, NORMAL BREATHING PATTERN. absent: Rales, Rhonchi, Wheezes Additional comments: seen on bipap fio2 30% - Cardiovascular Exam Cardiovascular Exam: Tachycardia, Irregular Rhythm, +S1, Systolic Murmur - GI/Abdominal Exam GI & Abdominal Exam: Normal Bowel Sounds, Soft. 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, CAD w/ 2 stents (placed over 10 years ago), left-heart valve pathology, HLD who presented to the ED for worsening shortness of breath: Stage IIB Adenocarcinoma Left Lung -LLL CT guided biopsy 03/06/18 showed adenocarcinoma with focal mucin production -PET scan performed on 03/28/2018 showed 4.7x5.1cm LLL pulm mass with intense FDG uptake consistent with malignant neoplasm; subcarinal adenopathy -measuring approx 2.2x3.4cm with increased FDG uptake; small non-specific sclerotic focus at T7 vertebral body of uncertain significance -patient underwent left lung mass resection in 04/2018 -began chemotherapy after lung mass resection - has completed 3 cycles of carboplatin - latest infusion 07/24/2018 -Chest CTA 07/26/2018: * Bilateral moderate pleural effusions are identified in the interval likely pulmonary vascular congestion and potential right heart failure as discussed above. Cardiomegaly. Trace pericardial effusion no definite pulmonary embolus identified. Status post left lower lobectomy with tiny scattered nodules diffusely noted suspicious for metastasis. Potential T9 vertebral body metastasis as well, though sclerotic. Limited atelectasis at the dependent portion of the inferior left lower lobe subsegments may harbor nodularity, further suspicious for metastasis. Thickening of the left-sided pleural may be a function post radiation change or possible inflammatory or infectious process. The latter is not favored. -currently with right-sided IJ venous access port -broom man Dr Bush on board CHF Exacerbation -likely 2/2 to left-heart valve pathology -patient stated he was told the valve (he is unsure which valve) will eventually need to be replaced -Chest CTA 07/26/2018: * Cardiomegaly is reiterated with normal volume of the right lateral ventricle relative to the left. Left atrium appears dilated and left lateral ventricle hypertrophied. -IV lexiscan nuclear stress test performed in 10/2017 was negative -probnp 4660 -received 80mg iv lasix in ED and patient urinated 2L with much improvement in sob -on lasix 40mg ivp qd, coreg 25mg po bid, plavix 75mg po qd, aspirin 81mg po qd, losartan 100mg po qpm -echo 07/28/18 * biatrial enlargement, moderate concentric LVH, normal LV systolic function, severe , moderate AI, moderate TR, severe MR -coordinate measuring machine operator Dr Dias on board Sclerotic T9 vertebral Body -Chest CTA 07/26/2018: * Sclerotic density under 1 cm size seen at the T9 vertebral body posteriorly, suspicious for metastasis though not definite. -PET scan performed on 03/28/2018 showed 4.7x5.1cm LLL pulm mass with intense FDG uptake consistent with malignant neoplasm; subcarinal adenopathy -measuring approx 2.2x3.4cm with increased FDG uptake; small non-specific sclerotic focus at T7 vertebral body of uncertain significance Dispo: likely discharge today; patient will come see Dr Dykes in his office this Thrusday 08/02/2018 Seen and discussed with Dr Dykes
--- NOTE | 2018-07-31 21:03 | DS ---
HISTORY OF PRESENT ILLNESS: A 77-year-old male with stage III lung CA with lung metastasis, admitted to the hospital with shortness of breath, cough, sputum production, and was found to have probable postobstructive pneumonitis. The patient was treated with IV antibiotics, bronchodilators, and steroids. The patient did well. Vital signs are stable. The patient follow with Dr. Dykes. His last chemotherapy with Dr. Dykes in the following week. The patient is improved, he is less short of breath. He is tolerating his diet well. He is able to ambulate without assistance. The patient will be discharged home in improved condition continue steroids and antibiotics and bronchodilators at home and to follow up with Dr. Dykes on . FINAL DISCHARGE DIAGNOSES: Exacerbation of chronic obstructive pulmonary disease, bronchopneumonia, and stage III lung cancer. Yair Short MD
--- NOTE | 2018-08-01 01:06 | PN ---
DATE: 07/31/2018 SUBJECTIVE: The patient is seen sitting in a chair on telemetry. He is tentatively scheduled to be discharged later today. He remains in atrial fibrillation. His dyspnea is improved. He has had no further ventricular tachycardia noted overnight. CURRENT MEDICATIONS: Include Brovana, carvedilol 25 mg b.i.d., losartan, aspirin, potassium, Lasix 40 mg daily, Lovenox, Plavix, Protonix, Pulmicort, and Xopenex. OBJECTIVE: GENERAL: He is an elderly man who appears comfortable at rest. VITAL SIGNS: Blood pressure is 112/70 with pulse of 86 in atrial fibrillation, respirations of 16. He is afebrile. HEENT: Diminished and delayed carotid upstrokes. CHEST: Bilateral scattered rhonchi heard. HEART: PMI displaced laterally with systolic murmur at the base radiating to the carotids as well as a systolic murmur present at the left sternal border. ABDOMEN: Soft, nontender with normoactive bowel sounds. EXTREMITIES: No edema. DIAGNOSTIC DATA: No blood work pending from this morning. IMPRESSION: 1. Recent decompensated congestive heart failure, acute, diastolic, clinically improved. 2. Known coronary artery disease, status post remote percutaneous coronary intervention, appears clinically stable. 3. Chronic atrial fibrillation with controlled rate, not currently on anticoagulant therapy. This needs to be addressed. 4. Recent nonsustained ventricular tachycardia. 5. Stage III lung cancer, scheduled for one final course of chemotherapy. 6. Severe aortic stenosis. 7. Severe mitral regurgitation. 8. Moderate tricuspid and aortic insufficiency. RECOMMENDATIONS: 1. Current medications will be continued for now. Lasix can be switched to oral administration at this time. The issue of chronic anticoagulant therapy in the setting of atrial fibrillation will be addressed when he revisits his primary vehicle service attendant, Dr. Jenkins, upon discharge. 2. Conservative management of his nonsustained ventricular tachycardia also is planned for now but will need to be addressed in the future. Further management of his valvular heart disease will be left to his primary vehicle service attendant after completion of his chemotherapy and reassessment of his lung cancer status. We will be happy to see in the future if needed. Miguel Mccullough MD
== END 2018-07-31 12:47 | disposition home or self-care (01) | DRG 291 ==
LOC: ED 10:59 → ERH 13:41 → 2RNO 16:49
PROVIDERS: ADMIT Internal Medicine; ATTEND Internal Medicine
PROC: 3E0F7GC Introduction of Other Therapeutic Substance into Respiratory Tract, Via Natural or Artificial Opening (ICD-10-PCS; 2018-07-27)
PROC: 5A09357 Assistance with Respiratory Ventilation, Less than 24 Consecutive Hours, Continuous Positive Airway Pressure (ICD-10-PCS; principal; 2018-07-31)
DX: I11.0 Hypertensive heart disease with heart failure (principal); I50.43 Acute on chronic combined systolic (congestive) and diastolic (congestive) heart failure; J18.0 Bronchopneumonia, unspecified organism; C34.92 Malignant neoplasm of unspecified part of left bronchus or lung; I47.2 Ventricular tachycardia; J44.1 Chronic obstructive pulmonary disease with (acute) exacerbation; J44.0 Chronic obstructive pulmonary disease with (acute) lower respiratory infection; I48.2 Chronic atrial fibrillation; D50.9 Iron deficiency anemia, unspecified; G47.30 Sleep apnea, unspecified; I42.9 Cardiomyopathy, unspecified; I25.10 Atherosclerotic heart disease of native coronary artery without angina pectoris; I08.3 Combined rheumatic disorders of mitral, aortic and tricuspid valves; E87.6 Hypokalemia; E78.5 Hyperlipidemia, unspecified; Z79.82 Long term (current) use of aspirin; Z79.02 Long term (current) use of antithrombotics/antiplatelets; Z95.5 Presence of coronary angioplasty implant and graft; Z87.891 Personal history of nicotine dependence

== ENCOUNTER 2018-07-26 11:16 | Outpatient (CLI) | payer MEDICARE, OTHER | END 2018-07-26 11:17 | disposition home or self-care (01) | LOC: OPLAB 11:16 ==

== ENCOUNTER 2018-08-20 16:26 | Outpatient (CLI) | payer MEDICARE, OTHER | END 2018-08-20 16:27 | disposition home or self-care (01) | LOC: RAD 16:26 ==

== ENCOUNTER 2018-08-23 13:07 | Outpatient (CLI) | payer MEDICARE, OTHER | END 2018-08-23 13:08 | disposition home or self-care (01) | LOC: OPLAB 13:07 ==

== ENCOUNTER 2018-09-26 05:33 | Outpatient (CLI) | payer MEDICARE, OTHER | END 2018-09-26 05:34 | disposition home or self-care (01) | LOC: PET-BROA 05:33 | DX: C34.02 Malignant neoplasm of left main bronchus (principal) ==

== ENCOUNTER 2018-09-26 15:03 | Outpatient (CLI) | payer MEDICARE, OTHER | END 2018-09-26 15:04 | disposition home or self-care (01) | LOC: RAD 15:03 ==

== ENCOUNTER 2018-09-26 15:52 | Outpatient (CLI) | payer MEDICARE, OTHER | END 2018-09-26 15:53 | disposition home or self-care (01) | LOC: OPLAB 15:52 ==

== ENCOUNTER 2018-10-09 10:31 | Outpatient (CLI) | payer MEDICARE, OTHER | END 2018-10-09 10:32 | disposition home or self-care (01) | LOC: RAD 10:31 ==

== ENCOUNTER 2018-10-09 10:53 | Outpatient (CLI) | payer MEDICARE, OTHER | END 2018-10-09 10:54 | disposition home or self-care (01) | LOC: OPLAB 10:53 ==

== ENCOUNTER 2018-10-09 11:56 | Day surgery (SDC) | payer MEDICARE, OTHER ==
[2018-10-05 14:39] VITALS: BMI 23.4
[2018-10-09 12:48] VITALS: RESP 18
[2018-10-09 12:52] LABS: BLOOD UREA NITROGEN 19 mg/dL (7-21); CALCIUM 9.6 mg/dL (8.4-10.5); GFR NON-AFRICAN AMERICAN > 60
[2018-10-09 12:58] LABS: BASO # 0.02 K/mm3 (0.0-2.0); BASO % 0.2 % (0.0-3.0); EOS # 0.2 (0.0-0.7); EOS % 1.7 % (1.5-5.0); LYMPH # 1.1 (1.2-3.4); MEAN CELL VOLUME 96.6 fl (80.0-105.0); MEAN CORPUSCULAR HEMOGLOBIN 31.8 pg (25.0-35.0); MONO # 0.5 (0.1-0.6); MONO % 5.3 % (1.0-6.0); RBC 3.77 10^6/uL (3.5-6.1); RED CELL DISTRIBUTION WIDTH 15.3 % (11.5-14.5)
[2018-10-09 12:59] LABS: INR 1.29; PROTHROMBIN TIME 14.6 SECONDS (9.4-12.5)
[2018-10-09] MEDS ORDERED: Midazolam 2 MG/2 ML VIAL ONE (14:31)
[2018-10-09] MEDS ORDERED: Midazolam 2 MG/2 ML VIAL IVP ONE (14:40)
[2018-10-09] MEDS ORDERED: Oxycodone/Acetaminophen 5/325 mg Tab PO PRN (14:58)
[2018-10-09] MEDS ORDERED: Sodium Chloride 0.45% 1,000 ML IV SCH (15:00)
[2018-10-09 16:34] VITALS: TEMP 97.5
[2018-10-09 16:36] VITALS: BP 125/74; PULSE 81; O2SAT 94
--- NOTE | 2018-10-09 19:46 | CT ---
PROCEDURE: CT guided left scapula biopsy. HISTORY: Lung CA. Solitary 2 cm lytic lesion left scapula. Evaluate for metastatic disease. PHYSICIAN(S): Kaz Alcocer MD. TECHNIQUE: The relative risks and indications of the procedure were explained to the patient and consent obtained. The patient was placed prone on the CT scanner and preliminary images through the upper left scapula obtained. Conscious sedation and monitoring were provided throughout the procedure by a nurse. There is a 2 cm lytic lesion in the upper portion left scapula.. A left lateral approach was selected and the area prepped and draped in the usual sterile fashion. 1% Xylocaine was used to anesthetize the skin and soft tissues. A 17-gauge guiding needle was advanced into the 2 cm lytic lesion left scapula.. Its position was confirmed with CT. Using coaxial technique, multiple core biopsies were obtained. The postprocedure images show no evidence of significant hemorrhage. IMPRESSION: 1. CT-guided left scapula biopsy as described above.
== END 2018-10-09 17:15 | disposition home or self-care (01) ==
LOC: SDS 11:56
PROVIDERS: ATTEND Radiology Vascular & Interventional Radiology
DX: C79.51 Secondary malignant neoplasm of bone (principal); C34.90 Malignant neoplasm of unspecified part of unspecified bronchus or lung; I25.10 Atherosclerotic heart disease of native coronary artery without angina pectoris
CPT/HCPCS: 20220; 36415; 77012; 80048; 85025; 85610; 85730; 88305; J2250; J2405; J3010; J7030

== ENCOUNTER 2018-10-15 14:43 | Outpatient (CLI) | payer MEDICARE, OTHER | END 2018-10-15 14:44 | disposition home or self-care (01) | LOC: RAD 14:43 → OPLAB 14:44 ==

== ENCOUNTER 2018-10-23 14:34 | Outpatient (CLI) | payer MEDICARE, OTHER | END 2018-10-23 14:35 | disposition home or self-care (01) | LOC: RAD 14:35 ==

== ENCOUNTER 2018-11-01 17:52 | Outpatient (CLI) | payer MEDICARE, OTHER | END 2018-11-01 17:53 | disposition home or self-care (01) | LOC: OPLAB 17:52 ==

== ENCOUNTER 2018-11-05 11:57 | Outpatient (CLI) | payer MEDICARE, OTHER | END 2018-11-05 11:58 | disposition home or self-care (01) | LOC: RAD 11:57 ==

== ENCOUNTER 2018-11-13 12:32 | Outpatient (CLI) | payer MEDICARE, OTHER | END 2018-11-13 12:33 | disposition home or self-care (01) | LOC: RAD 12:32 ==

== ENCOUNTER 2018-11-15 13:07 | Outpatient (CLI) | payer MEDICARE, OTHER | END 2018-11-15 13:08 | disposition home or self-care (01) | LOC: RAD 13:08 ==